=== PATIENT | female | born 1975 | race African-American/Black ===

== ENCOUNTER 2016-10-03 12:01 | Emergency (ER) | payer OTHER ==
[2016-10-03 13:03] LABS: BASO # 0.1 K/mm3 (0.0-0.2); BASO % 1.5 % (0.0-1.0); EOS # 0.1 K/mm3 (0.0-0.50); EOS % 2.1 % (0.0-3.0); LARGE UNSTAINED CELL # 0.1 K/mm3 (0.0-0.4); LARGE UNSTAINED CELL % 1.7 % (0.0-4.0); LYMPH # 2.3 K/mm3 (1.5-4.5); LYMPH % 43.6 % (24.0-44.0); MEAN CORPUSCULAR HGB CONC 33.5 g/dl (32.0-36.5); MEAN CORPUSCULAR VOLUME 86.6 fl (80.0-96.0); MONO # 0.2 K/mm3 (0.0-0.8); MONO % 4.2 % (0.0-5.0); NEUTROPHILS # 2.4 K/mm3 (1.8-7.7); NEUTROPHILS % 46.9 % (36.0-66.0); PLATELET COUNT, AUTOMATED 235 k/mm3 (150-450)
[2016-10-03 13:07] LABS: CONTROL LINE HCG INT CTR LINE PRESENT
[2016-10-03 13:09] LABS: ANION GAP 6 MEQ/L (8-16); BLOOD UREA NITROGEN 10 MG/DL (7-18); CALCIUM LEVEL 8.8 MG/DL (8.5-10.1); CARBON DIOXIDE LEVEL 29 MEQ/L (21-32); CHLORIDE LEVEL 105 MEQ/L (98-107); GLOMERULAR FILTRATION RATE > 60.0 (>58); GLUCOSE, FASTING 93 MG/DL (70-105); POTASSIUM SERUM 3.9 MEQ/L (3.5-5.1); SODIUM LEVEL 140 MEQ/L (136-145)
--- NOTE | 2016-10-03 13:40 | REP ---
Chest x-ray: Two views. History: Syncope. . Comparison study: No comparison . Findings: The lungs are well inflated and free of infiltrate. The pleural angles are sharp. The heart size is normal. Pulmonary vasculature is not increased. No significant bony abnormality is seen. Impression: Negative chest x-ray. Signed by Ignacio Rebolledo MD 10/03/2016 01:32 P
--- NOTE | 2016-10-03 15:36 | EDDOCDS ---
Physician Documentation [facility] Name: Jazmyne Wolff Age: 41 yrs Sex: Female : 1975 Arrival Date: 10/03/2016 Time: 12:01 Bed 9 Private MD: Disposition: 10/03 15:17 Critical Care: Critical care not applicable. le Disposition: 10/03/16 15:15 Discharged to Home/Self Care. Impression: Syncope and collapse - near syncope. - Condition is Stable. - Discharge Instructions: Near-Syncope. - Medication Reconciliation, Local Pharmacy Hours form. - Follow up: Bri Stallings MD; When: Call to arrange an appointment; Reason: Recheck today's complaints, Continuance of care. Follow up: Austin Thornton [facility]; When: Tomorrow; Reason: Recheck today's complaints, Continuance of care. - Problem is an acute exacerbation. - Symptoms are resolved. - Notes: Call Dr Stallings's office tomorrow to see if your follow-up appt can be moved up You may benefit from a cardiology referral if Dr Stallings does not think these episodes are neurologic in nature Return to the ED for any further concerns Historical: - Allergies: no known allergies; - Home Meds: 1. Zyrtec 10 mg Oral tab 1 tab once daily (Last dose: 10/03/2016 07:00) 2. Maxalt 10 mg oral tab 1 tab (Last dose: Unknown) 3. pseudoephedrine HCl 30 mg Oral TbTR 2 tabs every 6 hours (Last dose: 10/03/2016 07:00) 4. naproxen 500 mg Oral tab 1 tab 2 times per day (Last dose: 10/03/2016 07:00) 5. Motrin 800 mg Oral tab 1 tab 3 times per day (Last dose: 10/03/2016 07:00) 6. Miralax 17 gram Oral pwpk 1 packet once daily (Last dose: 10/03/2016 07:00) 7. senna 8.6 mg oral tab 2 tabs once daily (Last dose: 10/03/2016 07:00) 8. Dulcolax (bisacodyl) 5 mg Oral TbEC 1 tab once daily (Last dose: 10/03/2016 07:00) 9. Advair Diskus 250-50 mcg/dose Inhl dsdv 1 puff 2 times per day (Last dose: 10/03/2016 07:00) - PMHx: Asthma; Vitamin B12 Deficiency; Anemia; - PSHx: Cesearean Section; Hernia repair- Umbilical; - Social history: Smoking status: Patient states was never smoker of tobacco. No barriers to communication noted, Speaks appropriately for age. - Family history: Not pertinent. - : The pt / caregiver states he / she is not on anticoagulants. Home medication list is obtained from the patient. - Exposure Risk Screening:: None identified. 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 8 in. (172.72 cm) (R); Pain 0/10; 12:12 BP 140 / 92 Sitting; Pulse 92; ml6 12:12 BP 148 / 93 Standing; Pulse 94; ml6 12:38 BP 126 / 77 (auto/); ml6 12:38 Pulse 82 MON; Resp 16; Pulse Ox 98% on R/A; ml6 12:53 BP 130 / 98 (auto/); ml6 12:53 Pulse 82 MON; Resp 16; Pulse Ox 98% on R/A; ml6 13:08 BP 127 / 83 (auto/); ml6 13:08 Pulse 78 MON; Resp 16; Pulse Ox 99% on R/A; Pain 0/10; ml6 14:00 BP 128 / 81; Pulse 88; Resp 18; Pulse Ox 98% on R/A; ml6 15:00 BP 131 / 87; Pulse 81; Resp 16; Pulse Ox 98% on R/A; Pain 0/10; ml6 15:34 BP 144 / 89; Pulse 87; Resp 16; Temp 98.2(O); Pulse Ox 98% on R/A; Pain 0/10; ml6 12:12 Body Mass Index 31.17 (92.99 kg, 172.72 cm) ml6 MDM: 12:08 Orthostatic VS ordered. le 12:09 Mechanical Designer/Pulse Ox/q 15 min VS ordered. le 12:09 Accucheck ordered. le 12:09 IV Saline Lock ordered. le 12:09 Rhythm Strip to chart ordered. le 12:10 Basic Metabolic Profile Ordered. EDMS 12:10 CBC with Diff Ordered. EDMS 12:10 Cardiac Injury Profile Ordered. EDMS 12:10 HCG,Serum Qualitative Ordered. EDMS 12:10 Troponin Ordered. EDMS 12:11 Chest, 2 View (pa\E\lat) Ordered. EDMS 12:11 ECG WITH READING ER PHYS+CARDIAG ordered. EDMS 12:52 Misc Jogger Operator Order ordered. le 13:12 Financial registration complete. lg 13:24 Misc Jogger Operator Order complete. deg 13:25 Basic Metabolic Profile Reviewed. le 13:25 CBC with Diff Reviewed. le 13:25 Cardiac Injury Profile Reviewed. le 13:25 HCG,Serum Qualitative Reviewed. le 13:25 Troponin Reviewed. le 14:57 [facility] Payment Agreement was scanned into [employer] and attached to record. lg 15:06 Chest, 2 View (pa\E\lat) Reviewed. le Signatures: Dispatcher [employer] EDYuliet Roman, Diabetes Educator Unit deg Ana Maria Busby, Reg Reg lg Louisa Sandoval, CLOTH GRADER SUPERVISOR CLOTH GRADER SUPERVISOR Bassem Vazquez, RN RN ml6 The chart was reviewed and I authenticate all verbal orders and agree with the evaluation and treatment provided.Attachments: 14:57 [facility] Payment Agreement lg MTDD
--- NOTE | 2016-10-03 15:36 | EDDOCDS ---
Nurse's Notes [facility] Name: Jazmyne Wolff Age: 41 yrs Sex: Female : 1975 Arrival Date: 10/03/2016 Time: 12:01 Bed 9 Private MD: Diagnosis: Syncope and collapse-near syncope Presentation: 10/03 12:11 Presenting complaint: Patient states: states that she was sitting in a chair and had an ml6 episode where she was awake and could not respond, patient states that she has had this issue previously and has had MRI/EEG and F/U with neurology. Adult Sepsis Screening: The patient does not have new or worsening altered mentation. Patient's respiratory rate is less than 22. Systolic blood pressure is greater than 100. Patient has a qSOFA score of 0- Negative Sepsis Screen. Suicide/Homicide risk assessment- the patient denies having any suicidal and/or homicidal ideations and does not present with any other emotional, behavioral or mental health complaints. 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 Transition of care: patient was not received from another setting of care. 12:11 Acuity: FLOR Level 4 ml6 12:11 Method Of Arrival: Ambulance ml6 13:28 Acuity: FLOR Level 3 ml6 Triage Assessment: 12:11 General: Appears in no apparent distress, Behavior is appropriate for age, cooperative. ml6 Pain: Denies pain. HIV screening NA for this visit Offered previously. Neurological: No deficits noted. Level of Consciousness is awake, alert, Oriented to person, place, time, Social Service Worker are equal bilaterally Moves all extremities. Full function Gait is steady. Cardiovascular: No deficits noted. Capillary refill < 3 seconds is brisk in bilateral fingers toes Heart tones S1 S2 present. Respiratory: No deficits noted. Airway is patent Respiratory effort is even, unlabored, Respiratory pattern is regular, symmetrical. GI: No deficits noted. 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 Zyrtec 10 mg Oral tab 1 tab once daily (Last dose: 10/03/2016 07:00) 2. Maxalt 10 mg oral tab 1 tab (Last dose: Unknown) 3. pseudoephedrine HCl 30 mg Oral TbTR 2 tabs every 6 hours (Last dose: 10/03/2016 07:00) 4. naproxen 500 mg Oral tab 1 tab 2 times per day (Last dose: 10/03/2016 07:00) 5. Motrin 800 mg Oral tab 1 tab 3 times per day (Last dose: 10/03/2016 07:00) 6. Miralax 17 gram Oral pwpk 1 packet once daily (Last dose: 10/03/2016 07:00) 7. senna 8.6 mg oral tab 2 tabs once daily (Last dose: 10/03/2016 07:00) 8. Dulcolax (bisacodyl) 5 mg Oral TbEC 1 tab once daily (Last dose: 10/03/2016 07:00) 9. Advair Diskus 250-50 mcg/dose Inhl dsdv 1 puff 2 times per day (Last dose: 10/03/2016 07:00) - PMHx: Asthma; Vitamin B12 Deficiency; Anemia; - PSHx: Cesearean Section; Hernia repair- Umbilical; - Social history: Smoking status: Patient states was never smoker of tobacco. No barriers to communication noted, Speaks appropriately for age. - Family history: Not pertinent. - : The pt / caregiver states he / she is not on anticoagulants. Home medication list is obtained from the patient. - Exposure Risk Screening:: None identified. Screenin:34 Screening information is obtained from the patient. Fall risk: No risks identified. ml6 Assistance ADL's: requires no assistance with activities of daily living. Abuse/DV Screen: The patient / caregiver reports he/she is: not in a situation that causes fear, pain or injury. Nutritional screening: No deficits noted. Advance Directives: Currently, there is no health care proxy. home support is adequate. Assessment: 12:11 General: see triage assessment. ml6 13:15 Neurological: Level of Consciousness is awake, alert, Oriented to person, place, time, ml6 Social Service Worker are equal bilaterally Moves all extremities. Full function Gait is steady, Speech is normal, Facial symmetry appears normal, Pupils are PERRLA. Cardiovascular: Capillary refill < 3 seconds is brisk in bilateral fingers toes Heart tones S1 S2 present Edema is absent. Pulses are all present. Rhythm is regular Chest pain is denied. Respiratory: Airway is patent Respiratory effort is even, Respiratory pattern is regular, symmetrical, Breath sounds are clear bilaterally. GI: No deficits noted. 14:15 Reassessment: Patient appears in no apparent distress at this time. Patient denies pain ml6 at this time. Patient states feeling better. Patient states symptoms have improved. 15:18 General: Appears in no apparent distress, comfortable. Pain: Denies pain. Neurological: ml6 No deficits noted. Level of Consciousness is awake, alert, Oriented to person, place, time, Social Service Worker are equal bilaterally Moves all extremities. Full function Gait is steady, Speech is normal, Facial symmetry appears normal, Pupils are PERRLA. Cardiovascular: No deficits noted. Capillary refill < 3 seconds is brisk in bilateral fingers toes Heart tones S1 S2 present Edema is absent. Pulses are all present. Rhythm is regular Chest pain is denied. Respiratory: No deficits noted. Airway is patent Respiratory effort is even, unlabored, Respiratory pattern is regular, symmetrical, Breath sounds are clear bilaterally. Vital Signs: 12:12 BP 129 / 89 Supine; Pulse 88; Resp 16; Temp 98.3(O); Pulse Ox 98% on R/A; Weight 92.99 ml6 kg (R); Height 5 ft. 8 in. (172.72 cm) (R); Pain 0/10; 12:12 BP 140 / 92 Sitting; Pulse 92; ml6 12:12 BP 148 / 93 Standing; Pulse 94; ml6 12:38 BP 126 / 77 (auto/); ml6 12:38 Pulse 82 MON; Resp 16; Pulse Ox 98% on R/A; ml6 12:53 BP 130 / 98 (auto/); ml6 12:53 Pulse 82 MON; Resp 16; Pulse Ox 98% on R/A; ml6 13:08 BP 127 / 83 (auto/); ml6 13:08 Pulse 78 MON; Resp 16; Pulse Ox 99% on R/A; Pain 0/10; ml6 14:00 BP 128 / 81; Pulse 88; Resp 18; Pulse Ox 98% on R/A; ml6 15:00 BP 131 / 87; Pulse 81; Resp 16; Pulse Ox 98% on R/A; Pain 0/10; ml6 15:34 BP 144 / 89; Pulse 87; Resp 16; Temp 98.2(O); Pulse Ox 98% on R/A; Pain 0/10; ml6 12:12 Body Mass Index 31.17 (92.99 kg, 172.72 cm) ml6 Vitals: 12:12 Glucose Measurement D-stick done by EMS. Log In Time N/A - ambulance arrival. ml6 ED Course: 12:01 Patient visited by Yuliet Davila, Telegraph Operator. deg 12:01 Patient moved to Waiting deg 12:02 Patient moved to 9 deg 12:07 Louis[facility] Sandoval FNP [facility]. le 12:11 Inserted peripheral IV: 20gauge IV in left antecubital area and blood collected. ml6 Patient tolerated the procedure well. 12:12 Patient visited by Louisa Sandoval FNP. le 12:12 Triage Initiated ml6 12:34 Patient visited by Bassem Gayle, JOSE ANGEL. ml6 12:43 Patient visited by Raymon Drummond PCA. jrd 12:43 EKG done. (by ED staff). Reviewed by Louisa ENCINAS. [email or web address] 13:20 Patient visited by Bassem Gayle, JOSE ANGEL. ml6 13:47 Chest, 2 View (pa\E\lat) Returned. EDMS 13:54 Patient visited by Bassem Gayle, JOSE ANGEL. ml6 14:39 Patient visited by Bassem Gayle, JOSE ANGEL. ml6 14:54 Patient name changed from Tericka\S\Cayla\S\Wolff\S\ to Tericka\S\L\S\Wolff. EDMS 14:57 [facility] Payment Agreement was scanned into [employer] and attached to record. lg 15:14 Bri Stallings MD is Referral Physician. le 15:15 Austin Thornton [facility] is Referral Physician. le 15:35 Discontinued IV bleeding controlled, pressure dressing applied, No redness/swelling at ml6 site. No procedures done that require assistance. 15:36 The patient / caregiver is instructed regarding the plan of care and ED course. ml6 Order Results: Lab Order: Basic Metabolic Profile; SPEC'M 10/03/16 12:24 Test: GLUCOSE, FASTING; Value: 93; Range: 70-105; Units: MG/DL; Status: F Test: BLOOD UREA NITROGEN; Value: 10; Range: 7-18; Units: MG/DL; Status: F Test: CREATININE FOR GFR; Value: 1.00; Range: 0.55-1.02; Units: MG/DL; Status: F Test: GLOMERULAR FILTRATION RATE; Value: > 60.0; Range: >58; Status: F Test: SODIUM LEVEL; Value: 140; Range: 136-145; Units: MEQ/L; Status: F Test: POTASSIUM SERUM; Value: 3.9; Range: 3.5-5.1; Units: MEQ/L; Status: F Test: CHLORIDE LEVEL; Value: 105; Range: 98-107; Units: MEQ/L; Status: F Test: CARBON DIOXIDE LEVEL; Value: 29; Range: 21-32; Units: MEQ/L; Status: F Test: ANION GAP; Value: 6; Range: 8-16; Abnormal: Below low normal; Units: MEQ/L; Status: F Test: CALCIUM LEVEL; Value: 8.8; Range: 8.5-10.1; Units: MG/DL; Status: F Test Note: ; Units are mL/min/1.73 m2 Chronic Kidney Disease Staging per NKF: Stage I & II GFR >=60 Normal to Mildly Decreased Stage III GFR 30-59 Moderately Decreased Stage IV GFR 15-29 Severely Decreased Stage V GFR <15 Very Little GFR Left ESRD GFR <15 on FORM TAMPING MACHINE OPERATOR Lab Order: CBC with Diff; SPEC'M 10/03/16 12:24 Test: WHITE BLOOD COUNT; Value: 5.0; Range: 4.0-10.0; Units: K/mm3; Status: F Test: RED BLOOD COUNT; Value: 4.82; Range: 4.00-5.40; Units: M/mm3; Status: F Test: HEMOGLOBIN; Value: 14.0; Range: 12.0-16.0; Units: g/dl; Status: F Test: HEMATOCRIT; Value: 41.8; Range: 36.0-47.0; Units: %; Status: F Test: MEAN CORPUSCULAR VOLUME; Value: 86.6; Range: 80.0-96.0; Units: fl; Status: F Test: MEAN CORPUSCULAR HEMOGLOBIN; Value: 29.0; Range: 27.0-33.0; Units: pg; Status: F Test: MEAN CORPUSCULAR HGB CONC; Value: 33.5; Range: 32.0-36.5; Units: g/dl; Status: F Test: RED CELL DISTRIBUTION WIDTH; Value: 14.0; Range: 11.5-14.5; Units: %; Status: F Test: PLATELET COUNT, AUTOMATED; Value: 235; Range: 150-450; Units: k/mm3; Status: F Test: NEUTROPHILS %; Value: 46.9; Range: 36.0-66.0; Units: %; Status: F Test: LYMPH %; Value: 43.6; Range: 24.0-44.0; Units: %; Status: F Test: MONO %; Value: 4.2; Range: 0.0-5.0; Units: %; Status: F Test: EOS %; Value: 2.1; Range: 0.0-3.0; Units: %; Status: F Test: BASO %; Value: 1.5; Range: 0.0-1.0; Abnormal: Above high normal; Units: %; Status: F Test: LARGE UNSTAINED CELL %; Value: 1.7; Range: 0.0-4.0; Units: %; Status: F Test: NEUTROPHILS #; Value: 2.4; Range: 1.8-7.7; Units: K/mm3; Status: F Test: LYMPH #; Value: 2.3; Range: 1.5-4.5; Units: K/mm3; Status: F Test: MONO #; Value: 0.2; Range: 0.0-0.8; Units: K/mm3; Status: F Test: EOS #; Value: 0.1; Range: 0.0-0.50; Units: K/mm3; Status: F Test: BASO #; Value: 0.1; Range: 0.0-0.2; Units: K/mm3; Status: F Test: LARGE UNSTAINED CELL #; Value: 0.1; Range: 0.0-0.4; Units: K/mm3; Status: F Lab Order: Cardiac Injury Profile; SPEC'M 10/03/16 12:24 Test: CPK CREATINE PHOSPHOKINASE; Value: 160; Range: 26-192; Units: U/L; Status: F Test: CK-MB VALUE MASS; Value: 1.0; Range: 0.0-3.6; Units: NG/ML; Status: F Test: MB/CK RELATIVE INDEX; Value: 0.62; Range: < OR =4; Status: F Test Note: ; DIAGNOSIS CRITERIA MMB ng/ml Relative Index (RI) NON-AMI < or = 5 N/A PEREZ ZONE > 5 < or = 4 AMI > 5 > 4 Lab Order: HCG,Serum Qualitative; SPEC'M 10/03/16 12:24 Test: HCG, SERUM QUALITATIVE; Value: NEGATIVE; Range: NEGATIVE; Status: F Lab Order: Troponin; SPEC'M 10/03/16 12:24 Test: TROPONIN I; Value: < 0.02; Range: < 0.10; Units: NG/ML; Status: F Test Note: ; Troponin I Reference Interval for MTX Connect LOCI: 99th Percentile= 0.00-0.045 ng/ml Risk Stratification: <= 0.10 ng/ml Decreased Risk for Adverse Clinical Events. 0.10-1.50 ng/ml Increased Risk for Adverse Clinical Events. Evaluation of additional criterion and/or repeat testing in 2-6 hours is suggested to rule out myocardial damage. >= 1.50 ng/ml Indicative of Myocardial Injury. Radiology Order: Chest, 2 View (pa\E\lat) Test: Chest, 2 View (pa\E\lat) REASON FOR EXAMINATION: Syncope; Chest x-ray: Two views.; ; History: Syncope. .; ; Comparison study: No comparison .; ; Findings: The lungs are well inflated and free of infiltrate. The pleural; angles are sharp. The heart size is normal. Pulmonary vasculature is not; increased. No significant bony abnormality is seen.; ; Impression:; ; Negative chest x-ray.; ; ; Signed by; Ignacio Rebolledo MD 10/03/2016 01:32 P; Outcome: 15:15 Discharge ordered by Provider. le 15:35 Discharge Assessment: patient administered narcotics - no. The following High Risk ml6 Discharge criteria are identified: None. Discharged to home ambulatory, with friend. Condition: improved. Discharge instructions given to patient, Instructed on discharge instructions, follow up and referral plans. medication usage, Demonstrated understanding of instructions, medications, Pt was receptive of discharge instructions/ teaching. No special radiology studies were completed. Property :Personal belongings accompany Pt. 15:36 Patient left the ED. ml6 Signatures: Dispatcher [employer] EDYuliet Roman, Telegraph Operator Unit Anthony Walkere, Reg Reg lg Louisa Sandoval, LABORER STEEL HANDLING LABORER STEEL HANDLING Bassem Vazquez, RN RN ml6 Raymon Drummond, JAPANESE INTERPRETER JAPANESE INTERPRETER jrd MTDD
--- NOTE | 2016-10-04 07:20 | ECGEPIP ---
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
--- NOTE | 2016-10-05 16:37 | EDDOCDS ---
Physician Documentation [facility] Name: Jazmyne Wolff Age: 41 yrs Sex: Female : 1975 Arrival Date: 10/03/2016 Time: 12:01 Bed 9 Private MD: Disposition: 10/03 15:17 Critical Care: Critical care not applicable. le Disposition: 10/03/16 15:15 Discharged to Home/Self Care. Impression: Syncope and collapse - near syncope. - Condition is Stable. - Discharge Instructions: Near-Syncope. - Medication Reconciliation, Local Pharmacy Hours form. - Follow up: Bri Stallings MD; When: Call to arrange an appointment; Reason: Recheck today's complaints, Continuance of care. Follow up: Austin Thornton [facility]; When: Tomorrow; Reason: Recheck today's complaints, Continuance of care. - Problem is an acute exacerbation. - Symptoms are resolved. - Notes: Call Dr Stallings's office tomorrow to see if your follow-up appt can be moved up You may benefit from a cardiology referral if Dr Stallings does not think these episodes are neurologic in nature Return to the ED for any further concerns Historical: - Allergies: no known allergies; - Home Meds: 1. Zyrtec 10 mg Oral tab 1 tab once daily (Last dose: 10/03/2016 07:00) 2. Maxalt 10 mg oral tab 1 tab (Last dose: Unknown) 3. pseudoephedrine HCl 30 mg Oral TbTR 2 tabs every 6 hours (Last dose: 10/03/2016 07:00) 4. naproxen 500 mg Oral tab 1 tab 2 times per day (Last dose: 10/03/2016 07:00) 5. Motrin 800 mg Oral tab 1 tab 3 times per day (Last dose: 10/03/2016 07:00) 6. Miralax 17 gram Oral pwpk 1 packet once daily (Last dose: 10/03/2016 07:00) 7. senna 8.6 mg oral tab 2 tabs once daily (Last dose: 10/03/2016 07:00) 8. Dulcolax (bisacodyl) 5 mg Oral TbEC 1 tab once daily (Last dose: 10/03/2016 07:00) 9. Advair Diskus 250-50 mcg/dose Inhl dsdv 1 puff 2 times per day (Last dose: 10/03/2016 07:00) - PMHx: Asthma; Vitamin B12 Deficiency; Anemia; - PSHx: Cesearean Section; Hernia repair- Umbilical; - Social history: Smoking status: Patient states was never smoker of tobacco. No barriers to communication noted, Speaks appropriately for age. - Family history: Not pertinent. - : The pt / caregiver states he / she is not on anticoagulants. Home medication list is obtained from the patient. - Exposure Risk Screening:: None identified. 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 8 in. (172.72 cm) (R); Pain 0/10; 12:12 BP 140 / 92 Sitting; Pulse 92; ml6 12:12 BP 148 / 93 Standing; Pulse 94; ml6 12:38 BP 126 / 77 (auto/); ml6 12:38 Pulse 82 MON; Resp 16; Pulse Ox 98% on R/A; ml6 12:53 BP 130 / 98 (auto/); ml6 12:53 Pulse 82 MON; Resp 16; Pulse Ox 98% on R/A; ml6 13:08 BP 127 / 83 (auto/); ml6 13:08 Pulse 78 MON; Resp 16; Pulse Ox 99% on R/A; Pain 0/10; ml6 14:00 BP 128 / 81; Pulse 88; Resp 18; Pulse Ox 98% on R/A; ml6 15:00 BP 131 / 87; Pulse 81; Resp 16; Pulse Ox 98% on R/A; Pain 0/10; ml6 15:34 BP 144 / 89; Pulse 87; Resp 16; Temp 98.2(O); Pulse Ox 98% on R/A; Pain 0/10; ml6 12:12 Body Mass Index 31.17 (92.99 kg, 172.72 cm) ml6 MDM: 12:08 Orthostatic VS ordered. le 12:09 Power Mule Operator/Pulse Ox/q 15 min VS ordered. le 12:09 Accucheck ordered. le 12:09 IV Saline Lock ordered. le 12:09 Rhythm Strip to chart ordered. le 12:10 Basic Metabolic Profile Ordered. EDMS 12:10 CBC with Diff Ordered. EDMS 12:10 Cardiac Injury Profile Ordered. EDMS 12:10 HCG,Serum Qualitative Ordered. EDMS 12:10 Troponin Ordered. EDMS 12:11 Chest, 2 View (pa\E\lat) Ordered. EDMS 12:11 ECG WITH READING ER PHYS+CARDIAG ordered. EDMS 12:52 Misc Inseamer Order ordered. le 13:12 Financial registration complete. lg 13:24 [facility] Order complete. deg 13:25 Basic Metabolic Profile Reviewed. le 13:25 CBC with Diff Reviewed. le 13:25 Cardiac Injury Profile Reviewed. le 13:25 HCG,Serum Qualitative Reviewed. le 13:25 Troponin Reviewed. le 14:57 [facility] Payment Agreement was scanned into [employer] and attached to record. lg 15:06 Chest, 2 View (pa\E\lat) Reviewed. le 10/04 11:45 T-Sheet-- Draft Copy was scanned into [employer] and attached to record. gb 11:45 ECG/EKG was scanned into [employer] and attached to record. gb 11:46 PCR was scanned into [employer] and attached to record. gb Signatures: Dispatcher [employer] EDYuliet Roman, Medical Device Sales Consultant Unit deg Evie Londono, Reg Reg gb Ana Maria Busby, Reg Reg lg Louisa Sandoval, ELECTRICAL DESIGN TECHNOLOGIST ELECTRICAL DESIGN TECHNOLOGIST Bassem Vazquez, RN RN ml6 The chart was reviewed and I authenticate all verbal orders and agree with the evaluation and treatment provided.Attachments: 10/03 14:57 [facility] Payment Agreement lg 10/04 11:45 T-Sheet-- Draft Copy gb 11:45 ECG/EKG gb Chart Complete MTDD
--- NOTE | 2016-10-05 16:37 | EDDOCDS ---
Physician Documentation [facility] Name: Jazmyne Wolff Age: 41 yrs Sex: Female : 1975 Arrival Date: 10/03/2016 Time: 12:01 Bed 9 Private MD: Disposition: 10/03 15:17 Critical Care: Critical care not applicable. le Disposition: 10/03/16 15:15 Discharged to Home/Self Care. Impression: Syncope and collapse - near syncope. - Condition is Stable. - Discharge Instructions: Near-Syncope. - Medication Reconciliation, Local Pharmacy Hours form. - Follow up: Bri Stallings MD; When: Call to arrange an appointment; Reason: Recheck today's complaints, Continuance of care. Follow up: Austin Thornton [facility]; When: Tomorrow; Reason: Recheck today's complaints, Continuance of care. - Problem is an acute exacerbation. - Symptoms are resolved. - Notes: Call Dr Stallings's office tomorrow to see if your follow-up appt can be moved up You may benefit from a cardiology referral if Dr Stallings does not think these episodes are neurologic in nature Return to the ED for any further concerns Historical: - Allergies: no known allergies; - Home Meds: 1. Zyrtec 10 mg Oral tab 1 tab once daily (Last dose: 10/03/2016 07:00) 2. Maxalt 10 mg oral tab 1 tab (Last dose: Unknown) 3. pseudoephedrine HCl 30 mg Oral TbTR 2 tabs every 6 hours (Last dose: 10/03/2016 07:00) 4. naproxen 500 mg Oral tab 1 tab 2 times per day (Last dose: 10/03/2016 07:00) 5. Motrin 800 mg Oral tab 1 tab 3 times per day (Last dose: 10/03/2016 07:00) 6. Miralax 17 gram Oral pwpk 1 packet once daily (Last dose: 10/03/2016 07:00) 7. senna 8.6 mg oral tab 2 tabs once daily (Last dose: 10/03/2016 07:00) 8. Dulcolax (bisacodyl) 5 mg Oral TbEC 1 tab once daily (Last dose: 10/03/2016 07:00) 9. Advair Diskus 250-50 mcg/dose Inhl dsdv 1 puff 2 times per day (Last dose: 10/03/2016 07:00) - PMHx: Asthma; Vitamin B12 Deficiency; Anemia; - PSHx: Cesearean Section; Hernia repair- Umbilical; - Social history: Smoking status: Patient states was never smoker of tobacco. No barriers to communication noted, Speaks appropriately for age. - Family history: Not pertinent. - : The pt / caregiver states he / she is not on anticoagulants. Home medication list is obtained from the patient. - Exposure Risk Screening:: None identified. MANAGER BUSINESS BANKING: 15:36 LMP N/A - control method ml6 Vital Signs: 12:12 BP 129 / 89 Supine; Pulse 88; Resp 16; Temp 98.3(O); Pulse Ox 98% on R/A; Weight 92.99 ml6 kg / 205.01 lbs (R); Height 5 ft. 8 in. (172.72 cm) (R); Pain 0/10; 12:12 BP 140 / 92 Sitting; Pulse 92; ml6 12:12 BP 148 / 93 Standing; Pulse 94; ml6 12:38 BP 126 / 77 (auto/); ml6 12:38 Pulse 82 MON; Resp 16; Pulse Ox 98% on R/A; ml6 12:53 BP 130 / 98 (auto/); ml6 12:53 Pulse 82 MON; Resp 16; Pulse Ox 98% on R/A; ml6 13:08 BP 127 / 83 (auto/); ml6 13:08 Pulse 78 MON; Resp 16; Pulse Ox 99% on R/A; Pain 0/10; ml6 14:00 BP 128 / 81; Pulse 88; Resp 18; Pulse Ox 98% on R/A; ml6 15:00 BP 131 / 87; Pulse 81; Resp 16; Pulse Ox 98% on R/A; Pain 0/10; ml6 15:34 BP 144 / 89; Pulse 87; Resp 16; Temp 98.2(O); Pulse Ox 98% on R/A; Pain 0/10; ml6 12:12 Body Mass Index 31.17 (92.99 kg, 172.72 cm) ml6 MDM: 12:08 Orthostatic VS ordered. le 12:09 Airborne Mission Systems Superintendent/Pulse Ox/q 15 min VS ordered. le 12:09 Accucheck ordered. le 12:09 IV Saline Lock ordered. le 12:09 Rhythm Strip to chart ordered. le 12:10 Basic Metabolic Profile Ordered. EDMS 12:10 CBC with Diff Ordered. EDMS 12:10 Cardiac Injury Profile Ordered. EDMS 12:10 HCG,Serum Qualitative Ordered. EDMS 12:10 Troponin Ordered. EDMS 12:11 Chest, 2 View (pa\E\lat) Ordered. EDMS 12:11 ECG WITH READING ER PHYS+CARDIAG ordered. EDMS 12:52 Misc Reclamation Engineer Order ordered. le 13:12 Financial registration complete. lg 13:24 [facility] Order complete. deg 13:25 Basic Metabolic Profile Reviewed. le 13:25 CBC with Diff Reviewed. le 13:25 Cardiac Injury Profile Reviewed. le 13:25 HCG,Serum Qualitative Reviewed. le 13:25 Troponin Reviewed. le 14:57 [facility] Payment Agreement was scanned into [employer] and attached to record. lg 15:06 Chest, 2 View (pa\E\lat) Reviewed. le 10/04 11:45 T-Sheet-- Draft Copy was scanned into [employer] and attached to record. gb 11:45 ECG/EKG was scanned into [employer] and attached to record. gb 11:46 PCR was scanned into MED[employer] and attached to record. gb Signatures: Dispatcher [employer] EDYuliet Roman, Molder Bench Unit deg Evie Londono, Reg Reg gb Ana Maria Busby, Reg Reg lg Louisa Sandoval, DIRECTOR LIFE SALES DIRECTOR LIFE SALES Bassem Vazquez, RN RN ml6 The chart was reviewed and I authenticate all verbal orders and agree with the evaluation and treatment provided.Attachments: 10/03 14:57 [facility] Payment Agreement lg 10/04 11:45 T-Sheet-- Draft Copy gb 11:45 ECG/EKG gb Chart Complete MTDD
--- NOTE | 2016-10-05 16:38 | EDDOCDS ---
Nurse's Notes [facility] Name: Jazmyne Wolff Age: 41 yrs Sex: Female : 1975 Arrival Date: 10/03/2016 Time: 12:01 Bed 9 Private MD: Diagnosis: Syncope and collapse-near syncope Presentation: 10/03 12:11 Presenting complaint: Patient states: states that she was sitting in a chair and had an ml6 episode where she was awake and could not respond, patient states that she has had this issue previously and has had MRI/EEG and F/U with neurology. Adult Sepsis Screening: The patient does not have new or worsening altered mentation. Patient's respiratory rate is less than 22. Systolic blood pressure is greater than 100. Patient has a qSOFA score of 0- Negative Sepsis Screen. Suicide/Homicide risk assessment- the patient denies having any suicidal and/or homicidal ideations and does not present with any other emotional, behavioral or mental health complaints. 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 Transition of care: patient was not received from another setting of care. 12:11 Acuity: FLOR Level 4 ml6 12:11 Method Of Arrival: Ambulance ml6 13:28 Acuity: FLOR Level 3 ml6 Triage Assessment: 12:11 General: Appears in no apparent distress, Behavior is appropriate for age, cooperative. ml6 Pain: Denies pain. HIV screening NA for this visit Offered previously. Neurological: No deficits noted. Level of Consciousness is awake, alert, Oriented to person, place, time, Hospice Case Manager are equal bilaterally Moves all extremities. Full function Gait is steady. Cardiovascular: No deficits noted. Capillary refill < 3 seconds is brisk in bilateral fingers toes Heart tones S1 S2 present. Respiratory: No deficits noted. Airway is patent Respiratory effort is even, unlabored, Respiratory pattern is regular, symmetrical. GI: No deficits noted. COST CONSULTANT: 15:36 LMP N/A - control method ml6 Historical: - Allergies: no known allergies; - Home Meds: 1. Zyrtec 10 mg Oral tab 1 tab once daily (Last dose: 10/03/2016 07:00) 2. Maxalt 10 mg oral tab 1 tab (Last dose: Unknown) 3. pseudoephedrine HCl 30 mg Oral TbTR 2 tabs every 6 hours (Last dose: 10/03/2016 07:00) 4. naproxen 500 mg Oral tab 1 tab 2 times per day (Last dose: 10/03/2016 07:00) 5. Motrin 800 mg Oral tab 1 tab 3 times per day (Last dose: 10/03/2016 07:00) 6. Miralax 17 gram Oral pwpk 1 packet once daily (Last dose: 10/03/2016 07:00) 7. senna 8.6 mg oral tab 2 tabs once daily (Last dose: 10/03/2016 07:00) 8. Dulcolax (bisacodyl) 5 mg Oral TbEC 1 tab once daily (Last dose: 10/03/2016 07:00) 9. Advair Diskus 250-50 mcg/dose Inhl dsdv 1 puff 2 times per day (Last dose: 10/03/2016 07:00) - PMHx: Asthma; Vitamin B12 Deficiency; Anemia; - PSHx: Cesearean Section; Hernia repair- Umbilical; - Social history: Smoking status: Patient states was never smoker of tobacco. No barriers to communication noted, Speaks appropriately for age. - Family history: Not pertinent. - : The pt / caregiver states he / she is not on anticoagulants. Home medication list is obtained from the patient. - Exposure Risk Screening:: None identified. Screenin:34 Screening information is obtained from the patient. Fall risk: No risks identified. ml6 Assistance ADL's: requires no assistance with activities of daily living. Abuse/DV Screen: The patient / caregiver reports he/she is: not in a situation that causes fear, pain or injury. Nutritional screening: No deficits noted. Advance Directives: Currently, there is no health care proxy. home support is adequate. Assessment: 12:11 General: see triage assessment. ml6 13:15 Neurological: Level of Consciousness is awake, alert, Oriented to person, place, time, ml6 Hospice Case Manager are equal bilaterally Moves all extremities. Full function Gait is steady, Speech is normal, Facial symmetry appears normal, Pupils are PERRLA. Cardiovascular: Capillary refill < 3 seconds is brisk in bilateral fingers toes Heart tones S1 S2 present Edema is absent. Pulses are all present. Rhythm is regular Chest pain is denied. Respiratory: Airway is patent Respiratory effort is even, Respiratory pattern is regular, symmetrical, Breath sounds are clear bilaterally. GI: No deficits noted. 14:15 Reassessment: Patient appears in no apparent distress at this time. Patient denies pain ml6 at this time. Patient states feeling better. Patient states symptoms have improved. 15:18 General: Appears in no apparent distress, comfortable. Pain: Denies pain. Neurological: ml6 No deficits noted. Level of Consciousness is awake, alert, Oriented to person, place, time, Hospice Case Manager are equal bilaterally Moves all extremities. Full function Gait is steady, Speech is normal, Facial symmetry appears normal, Pupils are PERRLA. Cardiovascular: No deficits noted. Capillary refill < 3 seconds is brisk in bilateral fingers toes Heart tones S1 S2 present Edema is absent. Pulses are all present. Rhythm is regular Chest pain is denied. Respiratory: No deficits noted. Airway is patent Respiratory effort is even, unlabored, Respiratory pattern is regular, symmetrical, Breath sounds are clear bilaterally. Vital Signs: 12:12 BP 129 / 89 Supine; Pulse 88; Resp 16; Temp 98.3(O); Pulse Ox 98% on R/A; Weight 92.99 ml6 kg (R); Height 5 ft. 8 in. (172.72 cm) (R); Pain 0/10; 12:12 BP 140 / 92 Sitting; Pulse 92; ml6 12:12 BP 148 / 93 Standing; Pulse 94; ml6 12:38 BP 126 / 77 (auto/); ml6 12:38 Pulse 82 MON; Resp 16; Pulse Ox 98% on R/A; ml6 12:53 BP 130 / 98 (auto/); ml6 12:53 Pulse 82 MON; Resp 16; Pulse Ox 98% on R/A; ml6 13:08 BP 127 / 83 (auto/); ml6 13:08 Pulse 78 MON; Resp 16; Pulse Ox 99% on R/A; Pain 0/10; ml6 14:00 BP 128 / 81; Pulse 88; Resp 18; Pulse Ox 98% on R/A; ml6 15:00 BP 131 / 87; Pulse 81; Resp 16; Pulse Ox 98% on R/A; Pain 0/10; ml6 15:34 BP 144 / 89; Pulse 87; Resp 16; Temp 98.2(O); Pulse Ox 98% on R/A; Pain 0/10; ml6 12:12 Body Mass Index 31.17 (92.99 kg, 172.72 cm) ml6 Vitals: 12:12 Glucose Measurement D-stick done by EMS. Log In Time N/A - ambulance arrival. ml6 ED Course: 12:01 Patient visited by Yuliet Davila, Professional Poker Player. deg 12:01 Patient moved to Waiting deg 12:02 Patient moved to 9 deg 12:07 [facility] le 12:11 Inserted peripheral IV: 20gauge IV in left antecubital area and blood collected. ml6 Patient tolerated the procedure well. 12:12 Patient visited by Louisa Sandoval FNP. le 12:12 Triage Initiated ml6 12:34 Patient visited by Bassem Gayle, JOSE ANGEL. ml6 12:43 Patient visited by Raymon Drummond PCA. jrd 12:43 EKG done. (by ED staff). Reviewed by Louisa ENCINAS. [email or web address] 13:20 Patient visited by Bassem Gayle, JOSE ANGEL. ml6 13:47 Chest, 2 View (pa\E\lat) Returned. EDMS 13:54 Patient visited by Bassem Gayle, JOSE ANGEL. ml6 14:39 Patient visited by Bassem Gayle, JOSE ANGEL. ml6 14:54 Patient name changed from Tericka\S\Cayla\S\Wolff\S\ to Tericka\S\L\S\Wolff. EDMS 14:57 [facility] Payment Agreement was scanned into [employer] and attached to record. lg 15:14 Bri Stallings MD is Referral Physician. le 15:15 Austin Thornton [facility] is Referral Physician. le 15:35 Discontinued IV bleeding controlled, pressure dressing applied, No redness/swelling at ml6 site. No procedures done that require assistance. 15:36 The patient / caregiver is instructed regarding the plan of care and ED course. ml6 10/04 07:52 EKG-ADULT Returned. EDMS 11:45 T-Sheet-- Draft Copy was scanned into [employer] and attached to record. gb 11:45 ECG/EKG was scanned into [employer] and attached to record. gb 11:46 PCR was scanned into [employer] and attached to record. gb Order Results: Lab Order: Basic Metabolic Profile; SPEC'M 10/03/16 12:24 Test: GLUCOSE, FASTING; Value: 93; Range: 70-105; Units: MG/DL; Status: F Test: BLOOD UREA NITROGEN; Value: 10; Range: 7-18; Units: MG/DL; Status: F Test: CREATININE FOR GFR; Value: 1.00; Range: 0.55-1.02; Units: MG/DL; Status: F Test: GLOMERULAR FILTRATION RATE; Value: > 60.0; Range: >58; Status: F Test: SODIUM LEVEL; Value: 140; Range: 136-145; Units: MEQ/L; Status: F Test: POTASSIUM SERUM; Value: 3.9; Range: 3.5-5.1; Units: MEQ/L; Status: F Test: CHLORIDE LEVEL; Value: 105; Range: 98-107; Units: MEQ/L; Status: F Test: CARBON DIOXIDE LEVEL; Value: 29; Range: 21-32; Units: MEQ/L; Status: F Test: ANION GAP; Value: 6; Range: 8-16; Abnormal: Below low normal; Units: MEQ/L; Status: F Test: CALCIUM LEVEL; Value: 8.8; Range: 8.5-10.1; Units: MG/DL; Status: F Test Note: ; Units are mL/min/1.73 m2 Chronic Kidney Disease Staging per NKF: Stage I & II GFR >=60 Normal to Mildly Decreased Stage III GFR 30-59 Moderately Decreased Stage IV GFR 15-29 Severely Decreased Stage V GFR <15 Very Little GFR Left ESRD GFR <15 on TIME CLERK Lab Order: CBC with Diff; SPEC'M 10/03/16 12:24 Test: WHITE BLOOD COUNT; Value: 5.0; Range: 4.0-10.0; Units: K/mm3; Status: F Test: RED BLOOD COUNT; Value: 4.82; Range: 4.00-5.40; Units: M/mm3; Status: F Test: HEMOGLOBIN; Value: 14.0; Range: 12.0-16.0; Units: g/dl; Status: F Test: HEMATOCRIT; Value: 41.8; Range: 36.0-47.0; Units: %; Status: F Test: MEAN CORPUSCULAR VOLUME; Value: 86.6; Range: 80.0-96.0; Units: fl; Status: F Test: MEAN CORPUSCULAR HEMOGLOBIN; Value: 29.0; Range: 27.0-33.0; Units: pg; Status: F Test: MEAN CORPUSCULAR HGB CONC; Value: 33.5; Range: 32.0-36.5; Units: g/dl; Status: F Test: RED CELL DISTRIBUTION WIDTH; Value: 14.0; Range: 11.5-14.5; Units: %; Status: F Test: PLATELET COUNT, AUTOMATED; Value: 235; Range: 150-450; Units: k/mm3; Status: F Test: NEUTROPHILS %; Value: 46.9; Range: 36.0-66.0; Units: %; Status: F Test: LYMPH %; Value: 43.6; Range: 24.0-44.0; Units: %; Status: F Test: MONO %; Value: 4.2; Range: 0.0-5.0; Units: %; Status: F Test: EOS %; Value: 2.1; Range: 0.0-3.0; Units: %; Status: F Test: BASO %; Value: 1.5; Range: 0.0-1.0; Abnormal: Above high normal; Units: %; Status: F Test: LARGE UNSTAINED CELL %; Value: 1.7; Range: 0.0-4.0; Units: %; Status: F Test: NEUTROPHILS #; Value: 2.4; Range: 1.8-7.7; Units: K/mm3; Status: F Test: LYMPH #; Value: 2.3; Range: 1.5-4.5; Units: K/mm3; Status: F Test: MONO #; Value: 0.2; Range: 0.0-0.8; Units: K/mm3; Status: F Test: EOS #; Value: 0.1; Range: 0.0-0.50; Units: K/mm3; Status: F Test: BASO #; Value: 0.1; Range: 0.0-0.2; Units: K/mm3; Status: F Test: LARGE UNSTAINED CELL #; Value: 0.1; Range: 0.0-0.4; Units: K/mm3; Status: F Lab Order: Cardiac Injury Profile; SPEC'M 10/03/16 12:24 Test: CPK CREATINE PHOSPHOKINASE; Value: 160; Range: 26-192; Units: U/L; Status: F Test: CK-MB VALUE MASS; Value: 1.0; Range: 0.0-3.6; Units: NG/ML; Status: F Test: MB/CK RELATIVE INDEX; Value: 0.62; Range: < OR =4; Status: F Test Note: ; DIAGNOSIS CRITERIA MMB ng/ml Relative Index (RI) NON-AMI < or = 5 N/A PEREZ ZONE > 5 < or = 4 AMI > 5 > 4 Lab Order: HCG,Serum Qualitative; SPEC'M 10/03/16 12:24 Test: HCG, SERUM QUALITATIVE; Value: NEGATIVE; Range: NEGATIVE; Status: F Lab Order: Troponin; SPEC'M 10/03/16 12:24 Test: TROPONIN I; Value: < 0.02; Range: < 0.10; Units: NG/ML; Status: F Test Note: ; Troponin I Reference Interval for NovoPedics LOCI: 99th Percentile= 0.00-0.045 ng/ml Risk Stratification: <= 0.10 ng/ml Decreased Risk for Adverse Clinical Events. 0.10-1.50 ng/ml Increased Risk for Adverse Clinical Events. Evaluation of additional criterion and/or repeat testing in 2-6 hours is suggested to rule out myocardial damage. >= 1.50 ng/ml Indicative of Myocardial Injury. Radiology Order: EKG-ADULT Test: EKG-ADULT REASON FOR EXAMINATION: Syncope; Stationary ECG Study; [facility] - ED; ; Test Date: 2016-10-03; Pat Name: JAZMYNE WOLFF Department:; Room: -; Gender: F Chief Meteorologist: david; : 1975 Requested By: LOUISA ENCINAS; Order Number: [id number] Reading MD: Torri Emerson; Measurements; Intervals Alsey; Rate: 79 P: 53; NH: 127 QRS: 38; QRSD: 86 T: 29; QT: 361; QTc: 416; Interpretive Statements; SINUS RHYTHM; NO PRIOR FOR COMPARISON; Electronically Signed On 10-04-2016 7:19:53 EST by Torri Emerson; Radiology Order: Chest, 2 View (pa\E\lat) Test: Chest, 2 View (pa\E\lat) REASON FOR EXAMINATION: Syncope; Chest x-ray: Two views.; ; History: Syncope. .; ; Comparison study: No comparison .; ; Findings: The lungs are well inflated and free of infiltrate. The pleural; angles are sharp. The heart size is normal. Pulmonary vasculature is not; increased. No significant bony abnormality is seen.; ; Impression:; ; Negative chest x-ray.; ; ; Signed by; Ignacio Rebolledo MD 10/03/2016 01:32 P; Outcome: 10/03 15:15 Discharge ordered by Provider. camilo 15:35 Discharge Assessment: patient administered narcotics - no. The following High Risk ml6 Discharge criteria are identified: None. Discharged to home ambulatory, with friend. Condition: improved. Discharge instructions given to patient, Instructed on discharge instructions, follow up and referral plans. medication usage, Demonstrated understanding of instructions, medications, Pt was receptive of discharge instructions/ teaching. No special radiology studies were completed. Property :Personal belongings accompany Pt. 15:36 Patient left the ED. ml6 Signatures: Dispatcher [employer] EDMS Yuliet Davila, Professional Poker Player Unit deg Evie Londono, Reg Reg gb Ana Maria Busby, Reg Reg lg Louisa Sandoval, BENCH CHEMIST Bassem Ledesma, RN RN ml6 Raymon Drummond, JEAN-CLAUDE SEASONAL CLERK jrd Chart Complete MTDD
== END 2016-10-03 15:36 | disposition home or self-care (01) ==
LOC: M ED 12:01
DX: R55 Syncope and collapse (principal); J45.909 Unspecified asthma, uncomplicated; E53.8 Deficiency of other specified B group vitamins; D64.9 Anemia, unspecified; Z79.899 Other long term (current) drug therapy; Z79.1 Long term (current) use of non-steroidal anti-inflammatories (NSAID); Z79.51 Long term (current) use of inhaled steroids

== ENCOUNTER 2016-10-16 14:38 | Emergency (ER) | payer OTHER ==
--- NOTE | 2016-10-16 15:48 | REP ---
Chest two views HISTORY: Syncope Comparison: 10/03/2016 The lungs are clear. The heart is normal in size. The pulmonary vasculature is normal in appearance. The bony structure is intact. IMPRESSION: No acute disease. Signed by Magdi Meza MD 10/16/2016 03:39 P
[2016-10-16 16:09] LABS: BASO % 0.3 % (0.0-1.0); EOS # 0.1 K/mm3 (0.0-0.50); EOS % 1.9 % (0.0-3.0); LARGE UNSTAINED CELL # 0.1 K/mm3 (0.0-0.4); LARGE UNSTAINED CELL % 2.2 % (0.0-4.0); LYMPH # 1.9 K/mm3 (1.5-4.5); MEAN CORPUSCULAR HEMOGLOBIN 28.1 pg (27.0-33.0); MEAN CORPUSCULAR HGB CONC 32.5 g/dl (32.0-36.5); MEAN CORPUSCULAR VOLUME 86.4 fl (80.0-96.0); MONO # 0.2 K/mm3 (0.0-0.8); MONO % 4.3 % (0.0-5.0); NEUTROPHILS % 55.4 % (36.0-66.0); PLATELET COUNT, AUTOMATED 217 k/mm3 (150-450); WHITE BLOOD COUNT 5.3 K/mm3 (4.0-10.0)
[2016-10-16 16:20] LABS: ALBUMIN 3.8 GM/DL (3.2-5.2); ALBUMIN/GLOBULIN RATIO 1.06 (1.00-1.93); ALKALINE PHOSPHATASE 68 U/L (45-117); ALT/SGPT 32 U/L (12-78); ANION GAP 9 MEQ/L (8-16); AST/SGOT 22 U/L (15-37); BILIRUBIN,DIRECT 0.2 MG/DL (0.0-0.2); BILIRUBIN,TOTAL 0.8 MG/DL (0.2-1.0); BLOOD UREA NITROGEN 10 MG/DL (7-18); CALCIUM LEVEL 8.9 MG/DL (8.5-10.1); CARBON DIOXIDE LEVEL 25 MEQ/L (21-32); CHLORIDE LEVEL 109 MEQ/L (98-107); CREATININE FOR GFR 0.93 MG/DL (0.55-1.02); GLOMERULAR FILTRATION RATE > 60.0 (>58); GLUCOSE, FASTING 107 MG/DL (70-105); MAGNESIUM LEVEL 1.9 MG/DL (1.8-2.4); PHOSPHORUS LEVEL 2.8 MG/DL (2.5-4.9); POTASSIUM SERUM 3.7 MEQ/L (3.5-5.1); SODIUM LEVEL 143 MEQ/L (136-145); TOTAL PROTEIN 7.4 GM/DL (6.4-8.2)
--- NOTE | 2016-10-16 16:21 | REP ---
Head CT without contrast: History: CVA less than four half hours. Comparison study: No comparison study. CT findings: Bone window settings demonstrate an intact bony calvarium. There is no evidence of skull fracture or incidental bony calvarial lesion. The visualized paranasal sinuses appear clear. No intraorbital abnormality is seen. On soft tissue window setting images; the lateral, third, and fourth ventricles are normal in size and position. Riley-white differentiation pattern is normal above and below the tentorium. There are is no evidence of intracranial hemorrhage. No mass, edema, infarction, or midline shift is seen. No extra-axial fluid collection is appreciated. Impression: Negative noncontrast head CT. Signed by Ignacio Rebolledo MD 10/16/2016 04:12 P
--- NOTE | 2016-10-16 19:41 | EDDOCDS ---
Physician Documentation [facility] Name: Jazmyne Wolff Age: 41 yrs Sex: Female : 1975 Arrival Date: 10/16/2016 Time: 14:38 Bed D1 Private MD: CAIO Andujar Disposition: 10/16/16 18:25 Discharged to Home/Self Care. Impression: Muscle weakness (generalized) - resolved, Speech disturbances, not elsewhere classified - resolved. - Condition is Stable. - Discharge Instructions: Weakness. - Medication Reconciliation, Local Pharmacy Hours form. - Follow up: CAIO Andujar; When: Tomorrow; Reason: Recheck today's complaints. Follow up: Bri Stallings MD; When: 2 - 3 days; Reason: Recheck today's complaints. - Problem is new. - Symptoms are resolved. - Notes: You were seen in the ED for an episode of weaknes and trouble speaking which has now resolved. Bloodwork along with EKG of the heart, chest Xray and CT scan of the head showed no acute findings. We have consulted with Neurology as well who has recommended you may return home to follow up as an outpatient at your appointments with Neurology and Cardiology in 2 days. Please also call your primary doctor to arrange to be seen by your primary care as well. Return to the ED for any return of weakness, numbness, difficulty with speech or gate, chest pain, trouble breathing, loss of consciousness or any other concerns. Historical: - Allergies: No known drug Allergies; - Home Meds: 1. Advair Diskus 250-50 mcg/dose Inhl dsdv 1 puff 2 times per day 2. Dulcolax (bisacodyl) 5 mg Oral TbEC 1 tab once daily 3. Maxalt 10 mg oral tab 1 tab 4. Miralax 17 gram Oral pwpk 1 packet once daily 5. Motrin 800 mg Oral tab 1 tab 3 times per day 6. naproxen 500 mg Oral tab 1 tab 2 times per day 7. pseudoephedrine HCl 30 mg Oral TbTR 2 tabs every 6 hours 8. senna 8.6 mg oral tab 2 tabs once daily 9. Zyrtec 10 mg Oral tab 1 tab once daily - PMHx: Anemia; Asthma; Vitamin B12 Deficiency; - PSHx: Cesearean Section; Hernia repair- Umbilical; - Social history: Smoking status: Patient states was never smoker of tobacco. No barriers to communication noted, The patient speaks fluent Cymraes. - Family history: No immediate family members are acutely ill. - : The pt / caregiver states he / she is not on anticoagulants. Home medication list is obtained from the patient. - Exposure Risk Screening:: None identified. TAX SERVICES SPECIALIST: 10/16 14:46 LMP 10/02/2016 mb9 Vital Signs: 14:46 BP 145 / 75; Pulse 85; Resp 17; Temp 98.3(O); Pulse Ox 99% ; Weight 92.99 kg / 205.01 mb9 lbs; Height 5 ft. 8 in. (172.72 cm); 15:43 BP 131 / 78 Supine; Pulse 90; ck1 15:43 BP 139 / 78 Sitting; Pulse 89; ck1 15:43 BP 139 / 81 Standing; Pulse 92; ck1 16:46 Pulse 88 MON; Pulse Ox 100% ; mb9 16:46 BP 121 / 88 (auto/); mb9 17:15 Pulse 88 MON; Pulse Ox 98% ; mb9 17:16 BP 119 / 89 (auto/); mb9 17:46 BP 126 / 88 (auto/); mb9 17:47 Pulse 86 MON; Pulse Ox 98% ; mb9 14:46 Body Mass Index 31.17 (92.99 kg, 172.72 cm) mb9 MDM: 15:27 IV Saline Lock ordered. br1 15:27 Orthostatic VS ordered. br1 15:27 Capacitor Assembler/Pulse Ox/q 30 min VS ordered. br1 15:29 CBC with Diff Ordered. EDMS 15:29 BMP Ordered. EDMS 15:29 Liver Profile Ordered. EDMS 15:29 Troponin Ordered. EDMS 15:30 Chest, 2 View (pa\E\lat) Ordered. EDMS 15:30 ECG WITH READING ER PHYS+CARDIAG ordered. EDMS 15:30 CT Head Without Contrast Ordered. EDMS 15:53 MAGNESIUM LEVEL Ordered. EDMS 15:53 PHOSPHOROUS LEVEL Ordered. EDMS 17:30 Financial registration complete. zo 17:33 [facility] Payment Agreement was scanned into [employer] and attached to record. zo 18:04 BMP Reviewed. br1 18:04 CBC with Diff Reviewed. br1 18:04 Liver Profile Reviewed. br1 18:04 Troponin Reviewed. br1 18:04 MAGNESIUM LEVEL Reviewed. br1 18:04 PHOSPHOROUS LEVEL Reviewed. br1 18:04 Chest, 2 View (pa\E\lat) Reviewed. br1 18:04 CT Head Without Contrast Reviewed. br1 Signatures: Dispatcher [employer] EDMS Bull Colin Brian, MD MD br1 Panchito Palacio,RN RN mb9 Luna Jimenez RN RN tm5 The chart was reviewed and I authenticate all verbal orders and agree with the evaluation and treatment provided.Corrections: (The following items were deleted from the chart) 15:53 15:30 MAGNESIUM LEVEL+LAB ordered. EDMS EDMS 15:53 15:30 PHOSPHOROUS LEVEL+LAB ordered. EDMS EDMS Attachments: 17:33 [facility] Payment Agreement zo MTDD
--- NOTE | 2016-10-16 19:41 | EDDOCDS ---
Nurse's Notes [facility] Name: Jazmyne Wolff Age: 41 yrs Sex: Female : 1975 Arrival Date: 10/16/2016 Time: 14:38 Bed D1 Private MD: CAIO Andujar Diagnosis: Muscle weakness (generalized)-resolved;Speech disturbances, not elsewhere classified-resolved Presentation: 10/16 14:46 Presenting complaint: EMS states: "We were called for unresponsiveness and pt not mb9 acting right. Pt is unable to speak at this time. Pt is able to type appropriate responses on her phone". Suicide/Homicide risk assessment- the patient denies having any suicidal and/or homicidal ideations and does not present with any other emotional, behavioral or mental health complaints. 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 Transition of care: patient was not received from another setting of care. Care prior to arrival: See EMS report. 14:46 Acuity: FLOR Level 3 mb9 14:46 Method Of Arrival: Ambulance mb9 15:06 Adult Sepsis Screening: Patient has new or worsening altered mentation (1 point). mb9 Patient's respiratory rate is less than 22. Systolic blood pressure is greater than 100. Patient has a qSOFA score of 1- Negative Sepsis Screen. Acuity level changed due to complexity of care. 15:08 Acuity: FLOR Level 3 mb9 Triage Assessment: 14:46 General: Appears in no apparent distress, Behavior is cooperative. Pain: Denies pain. mb9 Unable to use pain scale. pt shakes head "no" when asked if she is having pain. HIV screening NA for this visit Offered previously. The patient is triaged at the bedside. See Assessment in Nurses Notes section of ED record. Neurological: Level of Consciousness is awake, Oriented to pt appears alert. pt appears non verbal.. Speech pt appears non verbal at this time. pt answering yes no questions appropriately. . Cardiovascular: Rhythm is sinus rhythm No ectopy. Respiratory: Airway is patent Respiratory effort is even, unlabored. DIRECTOR SOFTWARE: 14:46 LMP 10/02/2016 mb9 Historical: - Allergies: No known drug Allergies; - Home Meds: 1. Advair Diskus 250-50 mcg/dose Inhl dsdv 1 puff 2 times per day 2. Dulcolax (bisacodyl) 5 mg Oral TbEC 1 tab once daily 3. Maxalt 10 mg oral tab 1 tab 4. Miralax 17 gram Oral pwpk 1 packet once daily 5. Motrin 800 mg Oral tab 1 tab 3 times per day 6. naproxen 500 mg Oral tab 1 tab 2 times per day 7. pseudoephedrine HCl 30 mg Oral TbTR 2 tabs every 6 hours 8. senna 8.6 mg oral tab 2 tabs once daily 9. Zyrtec 10 mg Oral tab 1 tab once daily - PMHx: Anemia; Asthma; Vitamin B12 Deficiency; - PSHx: Cesearean Section; Hernia repair- Umbilical; - Social history: Smoking status: Patient states was never smoker of tobacco. No barriers to communication noted, The patient speaks fluent Nepalese. - Family history: No immediate family members are acutely ill. - : The pt / caregiver states he / she is not on anticoagulants. Home medication list is obtained from the patient. - Exposure Risk Screening:: None identified. Screenin:47 Screening information is obtained from the patient. Fall risk: No risks identified. mb9 Assistance ADL's: requires no assistance with activities of daily living. Abuse/DV Screen: The patient / caregiver reports he/she is: not in a situation that causes fear, pain or injury. Nutritional screening: No deficits noted. Advance Directives: There is no active DNR order. home support is adequate. Assessment: 14:50 Reassessment: Patient states symptoms have improved. mb9 14:50 General: Appears comfortable. Pain: Denies pain. Neurological: Level of Consciousness mb9 is awake, alert, Oriented to person, place, time, Team Assembler are equal bilaterally Moves all extremities. Speech is normal, Facial symmetry appears normal, Pupils are PERRLA. Cardiovascular: Heart tones S1 S2 present Pulses are all present. Rhythm is sinus rhythm. Respiratory: Breath sounds are clear bilaterally. 15:04 Reassessment: Patient states symptoms have not improved. General: at this time pt mb9 states, "My head is starting to hurt again". pt appeared unable to speak but was able to squeeze her right hand appropriately. pt was able to maintain an airway. episode appeared to have last 3 minutes. . 16:44 Reassessment: Patient appears in no apparent distress at this time. Patient states mb9 symptoms have improved. Adult Sepsis Screening: The patient does not have new or worsening altered mentation. Patient's respiratory rate is less than 22. Systolic blood pressure is greater than 100. Patient has a qSOFA score of 0- Negative Sepsis Screen. Respiratory: Respiratory effort is even, unlabored. 18:10 Reassessment: Patient appears in no apparent distress at this time. Adult Sepsis mb9 Screening: The patient does not have new or worsening altered mentation. Patient's respiratory rate is less than 22. Systolic blood pressure is greater than 100. Patient has a qSOFA score of 0- Negative Sepsis Screen. General: Appears comfortable. Respiratory: Respiratory effort is even, unlabored. Vital Signs: 14:46 BP 145 / 75; Pulse 85; Resp 17; Temp 98.3(O); Pulse Ox 99% ; Weight 92.99 kg; Height 5 mb9 ft. 8 in. (172.72 cm); 15:43 BP 131 / 78 Supine; Pulse 90; ck1 15:43 BP 139 / 78 Sitting; Pulse 89; ck1 15:43 BP 139 / 81 Standing; Pulse 92; ck1 16:46 Pulse 88 MON; Pulse Ox 100% ; mb9 16:46 BP 121 / 88 (auto/); mb9 17:15 Pulse 88 MON; Pulse Ox 98% ; mb9 17:16 BP 119 / 89 (auto/); mb9 17:46 BP 126 / 88 (auto/); mb9 17:47 Pulse 86 MON; Pulse Ox 98% ; mb9 14:46 Body Mass Index 31.17 (92.99 kg, 172.72 cm) mb9 Vitals: 14:46 Log In Time N/A - ambulance arrival. mb9 ED Course: 14:39 Patient visited by Christina Molina, Administrative Specialist. lbd 14:39 Patient moved to Waiting lbd 14:40 Pratima [facility] is Private Physician. lbd 14:40 Patient moved to 14 lbd 14:54 Triage Initiated mb9 15:09 Marcello Franks MD is Attending Physician. br1 15:24 Patient visited by Marcello Franks MD. br1 15:54 PHOSPHOROUS LEVEL Sent. mb9 15:54 MAGNESIUM LEVEL Sent. mb9 16:00 Patient visited by Raymon Drummond PCA. jrd 16:00 EKG done. (by ED staff). Reviewed by Marcello Franks MD. jrd 16:27 Chest, 2 View (pa\\E\\lat) Returned. EDMS 16:27 CT Head Without Contrast Returned. EDMS 16:47 The patient / caregiver is instructed regarding the plan of care and ED course. Patient brenda has correct armband on for positive identification. Placed in gown. Side rails up X2. Seizure precautions initiated. card brusher on. Pulse ox on. NIBP on. 16:47 Maintain field IV. Dressing intact. Good blood return noted. Site clean & dry. Gauge & mb9 site: 20 GAUGE RIGHT AC. 16:48 Patient visited by Panchito Palacio RN. mb9 17:33 [facility] Payment Agreement was scanned into [employer] and attached to record. zo 18:10 Patient visited by Panchito Palacio RN. mb9 18:19 Patient visited by Marcello Franks MD. br1 18:22 Pratima [facility] is Referral Physician. br1 18:22 Bri Stallings MD is Referral Physician. br1 19:29 Patient moved to D1 cz Order Results: Lab Order: CBC with Diff; SPEC'M 08 15:46 Test: WHITE BLOOD COUNT; Value: 5.3; Range: 4.0-10.0; Units: K/mm3; Status: F Test: RED BLOOD COUNT; Value: 4.81; Range: 4.00-5.40; Units: M/mm3; Status: F Test: HEMOGLOBIN; Value: 13.5; Range: 12.0-16.0; Units: g/dl; Status: F Test: HEMATOCRIT; Value: 41.5; Range: 36.0-47.0; Units: %; Status: F Test: MEAN CORPUSCULAR VOLUME; Value: 86.4; Range: 80.0-96.0; Units: fl; Status: F Test: MEAN CORPUSCULAR HEMOGLOBIN; Value: 28.1; Range: 27.0-33.0; Units: pg; Status: F Test: MEAN CORPUSCULAR HGB CONC; Value: 32.5; Range: 32.0-36.5; Units: g/dl; Status: F Test: RED CELL DISTRIBUTION WIDTH; Value: 13.0; Range: 11.5-14.5; Units: %; Status: F Test: PLATELET COUNT, AUTOMATED; Value: 217; Range: 150-450; Units: k/mm3; Status: F Test: NEUTROPHILS %; Value: 55.4; Range: 36.0-66.0; Units: %; Status: F Test: LYMPH %; Value: 36.0; Range: 24.0-44.0; Units: %; Status: F Test: MONO %; Value: 4.3; Range: 0.0-5.0; Units: %; Status: F Test: EOS %; Value: 1.9; Range: 0.0-3.0; Units: %; Status: F Test: BASO %; Value: 0.3; Range: 0.0-1.0; Units: %; Status: F Test: LARGE UNSTAINED CELL %; Value: 2.2; Range: 0.0-4.0; Units: %; Status: F Test: NEUTROPHILS #; Value: 3.0; Range: 1.8-7.7; Units: K/mm3; Status: F Test: LYMPH #; Value: 1.9; Range: 1.5-4.5; Units: K/mm3; Status: F Test: MONO #; Value: 0.2; Range: 0.0-0.8; Units: K/mm3; Status: F Test: EOS #; Value: 0.1; Range: 0.0-0.50; Units: K/mm3; Status: F Test: BASO #; Value: 0.0; Range: 0.0-0.2; Units: K/mm3; Status: F Test: LARGE UNSTAINED CELL #; Value: 0.1; Range: 0.0-0.4; Units: K/mm3; Status: F Lab Order: [facility]; SPEC'M 10/16/16 15:46 Test: GLUCOSE, FASTING; Value: 107; Range: 70-105; Abnormal: Above high normal; Units: MG/DL; Status: F Test: BLOOD UREA NITROGEN; Value: 10; Range: 7-18; Units: MG/DL; Status: F Test: CREATININE FOR GFR; Value: 0.93; Range: 0.55-1.02; Units: MG/DL; Status: F Test: GLOMERULAR FILTRATION RATE; Value: > 60.0; Range: >58; Status: F Test: SODIUM LEVEL; Value: 143; Range: 136-145; Units: MEQ/L; Status: F Test: POTASSIUM SERUM; Value: 3.7; Range: 3.5-5.1; Units: MEQ/L; Status: F Test: CHLORIDE LEVEL; Value: 109; Range: 98-107; Abnormal: Above high normal; Units: MEQ/L; Status: F Test: CARBON DIOXIDE LEVEL; Value: 25; Range: 21-32; Units: MEQ/L; Status: F Test: ANION GAP; Value: 9; Range: 8-16; Units: MEQ/L; Status: F Test: CALCIUM LEVEL; Value: 8.9; Range: 8.5-10.1; Units: MG/DL; Status: F Test Note: ; Units are mL/min/1.73 m2 Chronic Kidney Disease Staging per NKF: Stage I & II GFR >=60 Normal to Mildly Decreased Stage III GFR 30-59 Moderately Decreased Stage IV GFR 15-29 Severely Decreased Stage V GFR <15 Very Little GFR Left ESRD GFR <15 on STUDY DIRECTOR Lab Order: Liver Profile; SPEC'M 10/16/16 15:46 Test: AST/SGOT; Value: 22; Range: 15-37; Units: U/L; Status: F Test: ALT/SGPT; Value: 32; Range: 12-78; Units: U/L; Status: F Test: ALKALINE PHOSPHATASE; Value: 68; Range: 45-117; Units: U/L; Status: F Test: BILIRUBIN,TOTAL; Value: 0.8; Range: 0.2-1.0; Units: MG/DL; Status: F Test: BILIRUBIN,DIRECT; Value: 0.2; Range: 0.0-0.2; Units: MG/DL; Status: F Test: TOTAL PROTEIN; Value: 7.4; Range: 6.4-8.2; Units: GM/DL; Status: F Test: ALBUMIN; Value: 3.8; Range: 3.2-5.2; Units: GM/DL; Status: F Test: ALBUMIN/GLOBULIN RATIO; Value: 1.06; Range: 1.00-1.93; Status: F Lab Order: Troponin; SPEC'M 10/16/16 15:46 Test: TROPONIN I; Value: < 0.02; Range: < 0.10; Units: NG/ML; Status: F Test Note: ; Troponin I Reference Interval for Siemens Cullen LOCI: 99th Percentile= 0.00-0.045 ng/ml Risk Stratification: <= 0.10 ng/ml Decreased Risk for Adverse Clinical Events. 0.10-1.50 ng/ml Increased Risk for Adverse Clinical Events. Evaluation of additional criterion and/or repeat testing in 2-6 hours is suggested to rule out myocardial damage. >= 1.50 ng/ml Indicative of Myocardial Injury. Lab Order: MAGNESIUM LEVEL; SPEC'M 10/16/16 15:46 Test: MAGNESIUM LEVEL; Value: 1.9; Range: 1.8-2.4; Units: MG/DL; Status: F Lab Order: PHOSPHOROUS LEVEL; SPEC'M 10/16/16 15:46 Test: PHOSPHORUS LEVEL; Value: 2.8; Range: 2.5-4.9; Units: MG/DL; Status: F Radiology Order: Chest, 2 View (pa\\E\\lat) Test: Chest, 2 View (pa\\E\\lat) REASON FOR EXAMINATION: Syncope; Chest two views; ; HISTORY: Syncope; ; Comparison: 10/03/2016; ; The lungs are clear. The heart is normal in size. The pulmonary vasculature is; normal in appearance. The bony structure is intact.; ; IMPRESSION: No acute disease.; ; ; Signed by; Magdi Meza MD 10/16/2016 03:39 P; Radiology Order: CT Head Without Contrast Test: CT Head Without Contrast REASON FOR EXAMINATION: CVA <4.5hrs; Head CT without contrast:; ; History: CVA less than four half hours.; ; Comparison study: No comparison study.; ; CT findings: Bone window settings demonstrate an intact bony calvarium. There; is no evidence of skull fracture or incidental bony calvarial lesion. The; visualized paranasal sinuses appear clear. No intraorbital abnormality is seen.; On soft tissue window setting images; the lateral, third, and fourth ventricles; are normal in size and position. Riley-white differentiation pattern is normal; above and below the tentorium. There are is no evidence of intracranial; hemorrhage. No mass, edema, infarction, or midline shift is seen. No; extra-axial fluid collection is appreciated.; ; Impression:; ; Negative noncontrast head CT.; ; ; Signed by; Ignacio Rebolledo MD 10/16/2016 04:12 P; Outcome: 18:25 Discharge ordered by Provider. br1 19:40 Patient left the ED. tm5 Signatures: Dispatcher [employer] EDMS Christina Molina, Administrative Specialist Unit lbd Macho Ojeda RN RN cz Piper Valero RN RN ck1 Bull Colin Brian, MD MD br1 Raymon Drummond PCA SETTLEMENT CLERK Panchito Singh RN RN mb9 Luna Jimenez RN RN tm5 Corrections: (The following items were deleted from the chart) 15:09 15:06 Acuity: FLOR Level 2 mb9 mb9 MTDD
--- NOTE | 2016-10-16 21:59 | ECGEPIP ---
Stationary ECG Study [facility] - ED Test Date: 2016-10-16 Pat Name: MARGY FUENTES Department: Room: - Gender: F [employer] Supervisor: david : 1975 Requested By: ANDREW Mtz Order Number: [id number] Reading MD: Torri Emerson Measurements Intervals [place] Rate: 84 P: 52 NV: 156 QRS: 43 QRSD: 90 T: 33 QT: 364 QTc: 432 Interpretive Statements SINUS RHYTHM SIMILAR 10/03/16 Electronically Signed On 10-16-2016 21:59:05 EST by Torri Emerson
--- NOTE | 2016-10-18 20:40 | EDDOCDS ---
Physician Documentation [facility] Name: Jazmyne Wolff Age: 41 yrs Sex: Female : 1975 Arrival Date: 10/16/2016 Time: 14:38 Bed D1 Private MD: CAIO Andujar Disposition: 10/16/16 18:25 Discharged to Home/Self Care. Impression: Muscle weakness (generalized) - resolved, Speech disturbances, not elsewhere classified - resolved. - Condition is Stable. - Discharge Instructions: Weakness. - Medication Reconciliation, Local Pharmacy Hours form. - Follow up: CAIO Andujar; When: Tomorrow; Reason: Recheck today's complaints. Follow up: Bri Stallings MD; When: 2 - 3 days; Reason: Recheck today's complaints. - Problem is new. - Symptoms are resolved. - Notes: You were seen in the ED for an episode of weaknes and trouble speaking which has now resolved. Bloodwork along with EKG of the heart, chest Xray and CT scan of the head showed no acute findings. We have consulted with Neurology as well who has recommended you may return home to follow up as an outpatient at your appointments with Neurology and Cardiology in 2 days. Please also call your primary doctor to arrange to be seen by your primary care as well. Return to the ED for any return of weakness, numbness, difficulty with speech or gate, chest pain, trouble breathing, loss of consciousness or any other concerns. Historical: - Allergies: No known drug Allergies; - Home Meds: 1. Advair Diskus 250-50 mcg/dose Inhl dsdv 1 puff 2 times per day 2. Dulcolax (bisacodyl) 5 mg Oral TbEC 1 tab once daily 3. Maxalt 10 mg oral tab 1 tab 4. Miralax 17 gram Oral pwpk 1 packet once daily 5. Motrin 800 mg Oral tab 1 tab 3 times per day 6. naproxen 500 mg Oral tab 1 tab 2 times per day 7. pseudoephedrine HCl 30 mg Oral TbTR 2 tabs every 6 hours 8. senna 8.6 mg oral tab 2 tabs once daily 9. Zyrtec 10 mg Oral tab 1 tab once daily - PMHx: Anemia; Asthma; Vitamin B12 Deficiency; - PSHx: Cesearean Section; Hernia repair- Umbilical; - Social history: Smoking status: Patient states was never smoker of tobacco. No barriers to communication noted, The patient speaks fluent Nicaraguan. - Family history: No immediate family members are acutely ill. - : The pt / caregiver states he / she is not on anticoagulants. Home medication list is obtained from the patient. - Exposure Risk Screening:: None identified. OPENER: 10/16 14:46 LMP 10/02/2016 mb9 Vital Signs: 14:46 BP 145 / 75; Pulse 85; Resp 17; Temp 98.3(O); Pulse Ox 99% ; Weight 92.99 kg / 205.01 mb9 lbs; Height 5 ft. 8 in. (172.72 cm); 15:43 BP 131 / 78 Supine; Pulse 90; ck1 15:43 BP 139 / 78 Sitting; Pulse 89; ck1 15:43 BP 139 / 81 Standing; Pulse 92; ck1 16:46 Pulse 88 MON; Pulse Ox 100% ; mb9 16:46 BP 121 / 88 (auto/); mb9 17:15 Pulse 88 MON; Pulse Ox 98% ; mb9 17:16 BP 119 / 89 (auto/); mb9 17:46 BP 126 / 88 (auto/); mb9 17:47 Pulse 86 MON; Pulse Ox 98% ; mb9 18:33 BP 136 / 76; Pulse 82; Resp 17; Temp 98.1; Pulse Ox 99% on R/A; mb9 14:46 Body Mass Index 31.17 (92.99 kg, 172.72 cm) mb9 MDM: 15:27 IV Saline Lock ordered. br1 15:27 Orthostatic VS ordered. br1 15:27 Accountant Auditor/Pulse Ox/q 30 min VS ordered. br1 15:29 CBC with Diff Ordered. EDMS 15:29 BMP Ordered. EDMS 15:29 Liver Profile Ordered. EDMS 15:29 Troponin Ordered. EDMS 15:30 Chest, 2 View (pa\E\lat) Ordered. EDMS 15:30 ECG WITH READING ER PHYS+CARDIAG ordered. EDMS 15:30 CT Head Without Contrast Ordered. EDMS 15:53 MAGNESIUM LEVEL Ordered. EDMS 15:53 PHOSPHOROUS LEVEL Ordered. EDMS 17:30 Financial registration complete. zo 17:33 [facility] Payment Agreement was scanned into [employer] and attached to record. zo 18:04 BMP Reviewed. br1 18:04 CBC with Diff Reviewed. br1 18:04 Liver Profile Reviewed. br1 18:04 Troponin Reviewed. br1 18:04 MAGNESIUM LEVEL Reviewed. br1 18:04 PHOSPHOROUS LEVEL Reviewed. br1 18:04 Chest, 2 View (pa\E\lat) Reviewed. br1 18:04 CT Head Without Contrast Reviewed. br1 10/17 13:36 T-Sheet-- Draft Copy was scanned into [employer] and attached to record. gb 13:36 ECG/EKG was scanned into [employer] and attached to record. gb 13:37 PCR was scanned into [employer] and attached to record. gb Signatures: Dispatcher [employer] EDMS Evie Londono, Reg Reg gb Cristi, Marcello Robles MD MD br1 Panchito Palacio,RN RN mb9 Luna Jimenez,RN RN tm5 The chart was reviewed and I authenticate all verbal orders and agree with the evaluation and treatment provided.Corrections: (The following items were deleted from the chart) 10/16 15:53 15:30 MAGNESIUM LEVEL+LAB ordered. EDMS EDMS 15:53 15:30 PHOSPHOROUS LEVEL+LAB ordered. EDMS EDMS Attachments: 17:33 [facility] Payment Agreement zo 10/17 13:36 T-Sheet-- Draft Copy gb 13:36 ECG/EKG gb Chart Complete MTDD
--- NOTE | 2016-10-18 20:40 | EDDOCDS ---
Nurse's Notes [facility] Name: Jazmyne Wolff Age: 41 yrs Sex: Female : 1975 Arrival Date: 10/16/2016 Time: 14:38 Bed D1 Private MD: CAIO Andujar Diagnosis: Muscle weakness (generalized)-resolved;Speech disturbances, not elsewhere classified-resolved Presentation: 10/16 14:46 Presenting complaint: EMS states: "We were called for unresponsiveness and pt not mb9 acting right. Pt is unable to speak at this time. Pt is able to type appropriate responses on her phone". Suicide/Homicide risk assessment- the patient denies having any suicidal and/or homicidal ideations and does not present with any other emotional, behavioral or mental health complaints. 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 Transition of care: patient was not received from another setting of care. Care prior to arrival: See EMS report. 14:46 Acuity: FLOR Level 3 mb9 14:46 Method Of Arrival: Ambulance mb9 15:06 Adult Sepsis Screening: Patient has new or worsening altered mentation (1 point). mb9 Patient's respiratory rate is less than 22. Systolic blood pressure is greater than 100. Patient has a qSOFA score of 1- Negative Sepsis Screen. Acuity level changed due to complexity of care. 15:08 Acuity: FLOR Level 3 mb9 Triage Assessment: 14:46 General: Appears in no apparent distress, Behavior is cooperative. Pain: Denies pain. mb9 Unable to use pain scale. pt shakes head "no" when asked if she is having pain. HIV screening NA for this visit Offered previously. The patient is triaged at the bedside. See Assessment in Nurses Notes section of ED record. Neurological: Level of Consciousness is awake, Oriented to pt appears alert. pt appears non verbal.. Speech pt appears non verbal at this time. pt answering yes no questions appropriately. . Cardiovascular: Rhythm is sinus rhythm No ectopy. Respiratory: Airway is patent Respiratory effort is even, unlabored. 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 Advair Diskus 250-50 mcg/dose Inhl dsdv 1 puff 2 times per day 2. Dulcolax (bisacodyl) 5 mg Oral TbEC 1 tab once daily 3. Maxalt 10 mg oral tab 1 tab 4. Miralax 17 gram Oral pwpk 1 packet once daily 5. Motrin 800 mg Oral tab 1 tab 3 times per day 6. naproxen 500 mg Oral tab 1 tab 2 times per day 7. pseudoephedrine HCl 30 mg Oral TbTR 2 tabs every 6 hours 8. senna 8.6 mg oral tab 2 tabs once daily 9. Zyrtec 10 mg Oral tab 1 tab once daily - PMHx: Anemia; Asthma; Vitamin B12 Deficiency; - PSHx: Cesearean Section; Hernia repair- Umbilical; - Social history: Smoking status: Patient states was never smoker of tobacco. No barriers to communication noted, The patient speaks fluent Argentine. - Family history: No immediate family members are acutely ill. - : The pt / caregiver states he / she is not on anticoagulants. Home medication list is obtained from the patient. - Exposure Risk Screening:: None identified. Screenin:47 Screening information is obtained from the patient. Fall risk: No risks identified. mb9 Assistance ADL's: requires no assistance with activities of daily living. Abuse/DV Screen: The patient / caregiver reports he/she is: not in a situation that causes fear, pain or injury. Nutritional screening: No deficits noted. Advance Directives: There is no active DNR order. home support is adequate. Assessment: 14:50 Reassessment: Patient states symptoms have improved. mb9 14:50 General: Appears comfortable. Pain: Denies pain. Neurological: Level of Consciousness mb9 is awake, alert, Oriented to person, place, time, Supervisor Home [employer] are equal bilaterally Moves all extremities. Speech is normal, Facial symmetry appears normal, Pupils are PERRLA. Cardiovascular: Heart tones S1 S2 present Pulses are all present. Rhythm is sinus rhythm. Respiratory: Breath sounds are clear bilaterally. 15:04 Reassessment: Patient states symptoms have not improved. General: at this time pt mb9 states, "My head is starting to hurt again". pt appeared unable to speak but was able to squeeze her right hand appropriately. pt was able to maintain an airway. episode appeared to have last 3 minutes. . 16:44 Reassessment: Patient appears in no apparent distress at this time. Patient states mb9 symptoms have improved. Adult Sepsis Screening: The patient does not have new or worsening altered mentation. Patient's respiratory rate is less than 22. Systolic blood pressure is greater than 100. Patient has a qSOFA score of 0- Negative Sepsis Screen. Respiratory: Respiratory effort is even, unlabored. 18:10 Reassessment: Patient appears in no apparent distress at this time. Adult Sepsis mb9 Screening: The patient does not have new or worsening altered mentation. Patient's respiratory rate is less than 22. Systolic blood pressure is greater than 100. Patient has a qSOFA score of 0- Negative Sepsis Screen. General: Appears comfortable. Respiratory: Respiratory effort is even, unlabored. Vital Signs: 14:46 BP 145 / 75; Pulse 85; Resp 17; Temp 98.3(O); Pulse Ox 99% ; Weight 92.99 kg; Height 5 mb9 ft. 8 in. (172.72 cm); 15:43 BP 131 / 78 Supine; Pulse 90; ck1 15:43 BP 139 / 78 Sitting; Pulse 89; ck1 15:43 BP 139 / 81 Standing; Pulse 92; ck1 16:46 Pulse 88 MON; Pulse Ox 100% ; mb9 16:46 BP 121 / 88 (auto/); mb9 17:15 Pulse 88 MON; Pulse Ox 98% ; mb9 17:16 BP 119 / 89 (auto/); mb9 17:46 BP 126 / 88 (auto/); mb9 17:47 Pulse 86 MON; Pulse Ox 98% ; mb9 18:33 BP 136 / 76; Pulse 82; Resp 17; Temp 98.1; Pulse Ox 99% on R/A; mb9 14:46 Body Mass Index 31.17 (92.99 kg, 172.72 cm) mb9 Vitals: 14:46 Log In Time N/A - ambulance arrival. mb9 ED Course: 14:39 Patient visited by Christina Molina, Health Editor. lbd 14:39 Patient moved to Waiting lbd 14:40 Pratima Kya is Private Physician. lbd 14:40 Patient moved to 14 lbd 14:54 Triage Initiated mb9 15:09 Andrew Franks MD is Attending Physician. br1 15:24 Patient visited by Andrew Franks MD. br1 15:54 PHOSPHOROUS LEVEL Sent. mb9 15:54 MAGNESIUM LEVEL Sent. mb9 16:00 Patient visited by Raymon Drummond PCA. jrd 16:00 EKG done. (by ED staff). Reviewed by Andrew Franks MD. jrd 16:27 Chest, 2 View (pa\\E\\lat) Returned. EDMS 16:27 CT Head Without Contrast Returned. EDMS 16:47 The patient / caregiver is instructed regarding the plan of care and ED course. Patient mb9 has correct armband on for positive identification. Placed in gown. Side rails up X2. Seizure precautions initiated. security monitor on. Pulse ox on. NIBP on. 16:47 Maintain field IV. Dressing intact. Good blood return noted. Site clean & dry. Gauge & mb9 site: 20 GAUGE RIGHT AC. 16:48 Patient visited by Panchito Palacio RN. mb9 17:33 [facility] Payment Agreement was scanned into [employer] and attached to record. zo 18:10 Patient visited by Panchito Palacio RN. mb9 18:19 Patient visited by Andrew Franks MD. br1 18:22 Pratima [facility] is Referral Physician. br1 18:22 Bri Stallings MD is Referral Physician. br1 18:33 Discontinued IV lock intact, bleeding controlled, pressure dressing applied, No mb9 redness/swelling at site. No procedures done that require assistance. 19:29 Patient moved to D1 cz 22:12 EKG-ADULT Returned. EDMS 02/09 13:36 T-Sheet-- Draft Copy was scanned into [employer] and attached to record. gb 13:36 ECG/EKG was scanned into [employer] and attached to record. gb 13:37 PCR was scanned into [employer] and attached to record. gb Order Results: Lab Order: CBC with Diff; SPEC'M 10/16/16 15:46 Test: WHITE BLOOD COUNT; Value: 5.3; Range: 4.0-10.0; Units: K/mm3; Status: F Test: RED BLOOD COUNT; Value: 4.81; Range: 4.00-5.40; Units: M/mm3; Status: F Test: HEMOGLOBIN; Value: 13.5; Range: 12.0-16.0; Units: g/dl; Status: F Test: HEMATOCRIT; Value: 41.5; Range: 36.0-47.0; Units: %; Status: F Test: MEAN CORPUSCULAR VOLUME; Value: 86.4; Range: 80.0-96.0; Units: fl; Status: F Test: MEAN CORPUSCULAR HEMOGLOBIN; Value: 28.1; Range: 27.0-33.0; Units: pg; Status: F Test: MEAN CORPUSCULAR HGB CONC; Value: 32.5; Range: 32.0-36.5; Units: g/dl; Status: F Test: RED CELL DISTRIBUTION WIDTH; Value: 13.0; Range: 11.5-14.5; Units: %; Status: F Test: PLATELET COUNT, AUTOMATED; Value: 217; Range: 150-450; Units: k/mm3; Status: F Test: NEUTROPHILS %; Value: 55.4; Range: 36.0-66.0; Units: %; Status: F Test: LYMPH %; Value: 36.0; Range: 24.0-44.0; Units: %; Status: F Test: MONO %; Value: 4.3; Range: 0.0-5.0; Units: %; Status: F Test: EOS %; Value: 1.9; Range: 0.0-3.0; Units: %; Status: F Test: BASO %; Value: 0.3; Range: 0.0-1.0; Units: %; Status: F Test: LARGE UNSTAINED CELL %; Value: 2.2; Range: 0.0-4.0; Units: %; Status: F Test: NEUTROPHILS #; Value: 3.0; Range: 1.8-7.7; Units: K/mm3; Status: F Test: LYMPH #; Value: 1.9; Range: 1.5-4.5; Units: K/mm3; Status: F Test: MONO #; Value: 0.2; Range: 0.0-0.8; Units: K/mm3; Status: F Test: EOS #; Value: 0.1; Range: 0.0-0.50; Units: K/mm3; Status: F Test: BASO #; Value: 0.0; Range: 0.0-0.2; Units: K/mm3; Status: F Test: LARGE UNSTAINED CELL #; Value: 0.1; Range: 0.0-0.4; Units: K/mm3; Status: F Lab Order: BMP; [facility] 10/16/16 15:46 Test: GLUCOSE, FASTING; Value: 107; Range: 70-105; Abnormal: Above high normal; Units: MG/DL; Status: F Test: BLOOD UREA NITROGEN; Value: 10; Range: 7-18; Units: MG/DL; Status: F Test: CREATININE FOR GFR; Value: 0.93; Range: 0.55-1.02; Units: MG/DL; Status: F Test: GLOMERULAR FILTRATION RATE; Value: > 60.0; Range: >58; Status: F Test: SODIUM LEVEL; Value: 143; Range: 136-145; Units: MEQ/L; Status: F Test: POTASSIUM SERUM; Value: 3.7; Range: 3.5-5.1; Units: MEQ/L; Status: F Test: CHLORIDE LEVEL; Value: 109; Range: 98-107; Abnormal: Above high normal; Units: MEQ/L; Status: F Test: CARBON DIOXIDE LEVEL; Value: 25; Range: 21-32; Units: MEQ/L; Status: F Test: ANION GAP; Value: 9; Range: 8-16; Units: MEQ/L; Status: F Test: CALCIUM LEVEL; Value: 8.9; Range: 8.5-10.1; Units: MG/DL; Status: F Test Note: ; Units are mL/min/1.73 m2 Chronic Kidney Disease Staging per NKF: Stage I & II GFR >=60 Normal to Mildly Decreased Stage III GFR 30-59 Moderately Decreased Stage IV GFR 15-29 Severely Decreased Stage V GFR <15 Very Little GFR Left ESRD GFR <15 on TRUCK DRIVER'S OFFSIDER Lab Order: Liver Profile; [facility] 10/16/16 15:46 Test: AST/SGOT; Value: 22; Range: 15-37; Units: U/L; Status: F Test: ALT/SGPT; Value: 32; Range: 12-78; Units: U/L; Status: F Test: ALKALINE PHOSPHATASE; Value: 68; Range: 45-117; Units: U/L; Status: F Test: BILIRUBIN,TOTAL; Value: 0.8; Range: 0.2-1.0; Units: MG/DL; Status: F Test: BILIRUBIN,DIRECT; Value: 0.2; Range: 0.0-0.2; Units: MG/DL; Status: F Test: TOTAL PROTEIN; Value: 7.4; Range: 6.4-8.2; Units: GM/DL; Status: F Test: ALBUMIN; Value: 3.8; Range: 3.2-5.2; Units: GM/DL; Status: F Test: ALBUMIN/GLOBULIN RATIO; Value: 1.06; Range: 1.00-1.93; Status: F Lab Order: Troponin; SPEC'M 10/16/16 15:46 Test: TROPONIN I; Value: < 0.02; Range: < 0.10; Units: NG/ML; Status: F Test Note: ; Troponin I Reference Interval for mo9 ([employer]) LOCI: 99th Percentile= 0.00-0.045 ng/ml Risk Stratification: <= 0.10 ng/ml Decreased Risk for Adverse Clinical Events. 0.10-1.50 ng/ml Increased Risk for Adverse Clinical Events. Evaluation of additional criterion and/or repeat testing in 2-6 hours is suggested to rule out myocardial damage. >= 1.50 ng/ml Indicative of Myocardial Injury. 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 The heart is normal in size. The pulmonary vasculature is; normal in appearance. The bony structure is intact.; ; IMPRESSION: No acute disease.; ; ; Signed by; Magdi Meza MD 10/16/2016 03:39 P; Radiology Order: CT Head Without Contrast Test: CT Head Without Contrast REASON FOR EXAMINATION: CVA <4.5hrs; Head CT without contrast:; ; History: CVA less than four half hours.; ; Comparison study: No comparison study.; ; CT findings: Bone window settings demonstrate an intact bony calvarium. There; is no evidence of skull fracture or incidental bony calvarial lesion. The; visualized paranasal sinuses appear clear. No intraorbital abnormality is seen.; On soft tissue window setting images; the lateral, third, and fourth ventricles; are normal in size and position. Riley-white differentiation pattern is normal; above and below the tentorium. There are is no evidence of intracranial; hemorrhage. No mass, edema, infarction, or midline shift is seen. No; extra-axial fluid collection is appreciated.; ; Impression:; ; Negative noncontrast head CT.; ; ; Signed by; Ignacio Rebolledo MD 10/16/2016 04:12 P; Outcome: 10/16 18:25 Discharge ordered by Provider. br1 18:33 Discharge Assessment: Patient awake, alert and oriented x 3. No cognitive and/or mb9 functional deficits noted. Patient verbalized understanding of disposition instructions. patient administered narcotics - no. The following High Risk Discharge criteria are identified: None. Discharged to home ambulatory. Condition: good Condition: stable Condition: improved. Discharge instructions given to patient, Instructed on discharge instructions, follow up and referral plans. Demonstrated understanding of instructions, Pt was receptive of discharge instructions/ teaching. CT Study completed. Property :Personal belongings accompany Pt. 19:40 Patient left the ED. tm5 Signatures: Dispatcher [employer] EDMS Molina, Christina, Health Editor Unit lbd Macho Ojeda, RN RN cz Evie Londono, Reg Reg gb Belinda-Clay,JOSE ANGEL Saldaña RN ck1 Bull Colin Brian, MD MD br1 Raymon Drummond, BALER OPERATOR BALER OPERATOR jrd Panchito Palacio RN RN mb9 Luna Jimenez RN RN tm5 Corrections: (The following items were deleted from the chart) 15:09 15:06 Acuity: FLOR Level 2 mb9 mb9 Chart Complete MTDD
--- NOTE | 2016-10-18 20:40 | EDDOCDS ---
Physician Documentation [facility] Name: Jazmyne Wolff Age: 41 yrs Sex: Female : 1975 Arrival Date: 10/16/2016 Time: 14:38 Bed D1 Private MD: CAIO Andujar Disposition: 10/16/16 18:25 Discharged to Home/Self Care. Impression: Muscle weakness (generalized) - resolved, Speech disturbances, not elsewhere classified - resolved. - Condition is Stable. - Discharge Instructions: Weakness. - Medication Reconciliation, Local Pharmacy Hours form. - Follow up: CAIO Andujar; When: Tomorrow; Reason: Recheck today's complaints. Follow up: Bri Stallings MD; When: 2 - 3 days; Reason: Recheck today's complaints. - Problem is new. - Symptoms are resolved. - Notes: You were seen in the ED for an episode of weaknes and trouble speaking which has now resolved. Bloodwork along with EKG of the heart, chest Xray and CT scan of the head showed no acute findings. We have consulted with Neurology as well who has recommended you may return home to follow up as an outpatient at your appointments with Neurology and Cardiology in 2 days. Please also call your primary doctor to arrange to be seen by your primary care as well. Return to the ED for any return of weakness, numbness, difficulty with speech or gate, chest pain, trouble breathing, loss of consciousness or any other concerns. Historical: - Allergies: No known drug Allergies; - Home Meds: 1. Advair Diskus 250-50 mcg/dose Inhl dsdv 1 puff 2 times per day 2. Dulcolax (bisacodyl) 5 mg Oral TbEC 1 tab once daily 3. Maxalt 10 mg oral tab 1 tab 4. Miralax 17 gram Oral pwpk 1 packet once daily 5. Motrin 800 mg Oral tab 1 tab 3 times per day 6. naproxen 500 mg Oral tab 1 tab 2 times per day 7. pseudoephedrine HCl 30 mg Oral TbTR 2 tabs every 6 hours 8. senna 8.6 mg oral tab 2 tabs once daily 9. Zyrtec 10 mg Oral tab 1 tab once daily - PMHx: Anemia; Asthma; Vitamin B12 Deficiency; - PSHx: Cesearean Section; Hernia repair- Umbilical; - Social history: Smoking status: Patient states was never smoker of tobacco. No barriers to communication noted, The patient speaks fluent Yemeni. - Family history: No immediate family members are acutely ill. - : The pt / caregiver states he / she is not on anticoagulants. Home medication list is obtained from the patient. - Exposure Risk Screening:: None identified. 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 8 in. (172.72 cm); 15:43 BP 131 / 78 Supine; Pulse 90; ck1 15:43 BP 139 / 78 Sitting; Pulse 89; ck1 15:43 BP 139 / 81 Standing; Pulse 92; ck1 16:46 Pulse 88 MON; Pulse Ox 100% ; mb9 16:46 BP 121 / 88 (auto/); mb9 17:15 Pulse 88 MON; Pulse Ox 98% ; mb9 17:16 BP 119 / 89 (auto/); mb9 17:46 BP 126 / 88 (auto/); mb9 17:47 Pulse 86 MON; Pulse Ox 98% ; mb9 18:33 BP 136 / 76; Pulse 82; Resp 17; Temp 98.1; Pulse Ox 99% on R/A; mb9 14:46 Body Mass Index 31.17 (92.99 kg, 172.72 cm) mb9 MDM: 15:27 IV Saline Lock ordered. br1 15:27 Orthostatic VS ordered. br1 15:27 Felt Puller/Pulse Ox/q 30 min VS ordered. br1 15:29 CBC with Diff Ordered. EDMS 15:29 BMP Ordered. EDMS 15:29 Liver Profile Ordered. EDMS 15:29 Troponin Ordered. EDMS 15:30 Chest, 2 View (pa\E\lat) Ordered. EDMS 15:30 ECG WITH READING ER PHYS+CARDIAG ordered. EDMS 15:30 CT Head Without Contrast Ordered. EDMS 15:53 MAGNESIUM LEVEL Ordered. EDMS 15:53 PHOSPHOROUS LEVEL Ordered. EDMS 17:30 Financial registration complete. zo 17:33 [facility] Payment Agreement was scanned into [employer] and attached to record. zo 18:04 BMP Reviewed. br1 18:04 CBC with Diff Reviewed. br1 18:04 Liver Profile Reviewed. br1 18:04 Troponin Reviewed. br1 18:04 MAGNESIUM LEVEL Reviewed. br1 18:04 PHOSPHOROUS LEVEL Reviewed. br1 18:04 Chest, 2 View (pa\E\lat) Reviewed. br1 18:04 CT Head Without Contrast Reviewed. br1 10/17 13:36 T-Sheet-- Draft Copy was scanned into [employer] and attached to record. gb 13:36 ECG/EKG was scanned into [employer] and attached to record. gb 13:37 PCR was scanned into [employer] and attached to record. gb Signatures: Dispatcher [employer] EDMS Evie Londono, Reg Reg gb Cristi, Marcello Robles MD MD br1 Panchito Palacio,RN RN mb9 Luna Jimenez,RN RN tm5 The chart was reviewed and I authenticate all verbal orders and agree with the evaluation and treatment provided.Corrections: (The following items were deleted from the chart) 10/16 15:53 15:30 MAGNESIUM LEVEL+LAB ordered. EDMS EDMS 15:53 15:30 PHOSPHOROUS LEVEL+LAB ordered. EDMS EDMS Attachments: 17:33 [facility] Payment Agreement zo 10/17 13:36 T-Sheet-- Draft Copy gb 13:36 ECG/EKG gb Chart Complete MTDD
== END 2016-10-16 19:40 | disposition home or self-care (01) ==
LOC: M ED 14:38
DX: M62.81 Muscle weakness (generalized) (principal); R47.9 Unspecified speech disturbances; J45.909 Unspecified asthma, uncomplicated; D64.9 Anemia, unspecified; E53.8 Deficiency of other specified B group vitamins; Z79.899 Other long term (current) drug therapy; Z79.1 Long term (current) use of non-steroidal anti-inflammatories (NSAID); Z79.51 Long term (current) use of inhaled steroids